=== PATIENT | female | born 1960 | race Caucasian/White ===

== ENCOUNTER 2016-10-08 13:10 | Emergency (ER) | payer BC ==
[2016-10-08] MEDS ORDERED: ACETAMINOPHEN 325 MG TABLET (FP) PO ONE (13:20)
[2016-10-08] MEDS ORDERED: ACETAMINOPHEN 325 MG TABLET (FP) ONE (13:22)
[2016-10-08 13:26] VITALS: BP 136/90; PULSE 84; TEMP 98.1; BMI 21.6
--- NOTE | 2016-10-08 13:44 | PDOC ---
History of Present Illness - General Chief Complaint: Injury Stated Complaint: FALL Time Seen by Provider: 10/08/16 13:18 History Source: Patient Exam Limitations: No Limitations - History of Present Illness Initial Comments: 10/08/16 13:38 This is a 56-year-old female with a history of asthma, prior history of concussion who presents emergency department with a complaint of pain in her elbow, buttocks, and feet status post fall. Patient states she was going down the steps in her home (with steps without carpet) when she fell backwards landing on her bottom and slid down 6 steps. In the process she injured her elbows. She denies any head trauma or loss of consciousness. Patient was assisted to standing but noted severe left elbow pain, pain on the bottoms of her feet, and pain in her buttocks. Pt denied preceding dizziness, chest pain, shortness of breath, palpitations. PMH: Asthma PSH: none Medications: Proventil when necessary A LL: Please see MAR Social: Denies drug, cigarette use. GENERAL/CONSTITUTIONAL: No: fever, chills, weakness, loss of appetite. HEAD, EYES, EARS, NOSE AND THROAT: No: change in vision, ear pain, discharge, sore throat, throat swelling. MUSCULOSKELETAL: Yes: bilateral foot pain, left buttock pain, bilateral elbow pain SKIN : Yes: abrasions both elbows No: lesions, pallor, rash or easy bruising. NEUROLOGIC: No: headache, vertigo, paresthesias, weakness GENERAL: The patient is in no acute distress. HEAD: Normal with no signs of trauma. NECK: Normal range of motion, supple, No midline tenderness EXTREMITIES: Left elbow: limited range of motion, tenderness of the olecranon Right elbow: (+) range of motion, abrasion over the olecranon, no bruising Left sacral tenderness to palpation MUSCULOSKELETAL: No midline spinal tenderness to palpation, SKIN: No lacerations, no bruising noted Past History - Past Medical History Allergies/Adverse Reactions: Allergies Allergy/AdvReac Type Severity Reaction Status Date / Time shellfish derived Allergy Severe Difficulty Verified 10/08/16 13:13 Breathing Penicillins Allergy Intermediate Verified 10/08/16 13:13 aspirin Allergy Verified 10/08/16 13:13 clindamycin Allergy Rash Verified 10/08/16 13:13 doxycycline Allergy Verified 10/08/16 13:13 latex Allergy Rash Verified 10/08/16 13:13 nickel Allergy Verified 10/08/16 13:15 oxycodone Allergy Verified 10/08/16 13:15 ASA Allergy Uncoded 10/08/16 13:13 Home Medications: Ambulatory Orders Arformoterol Tartrate [Brovana (Restricted To Pulmonology/Resp) -] 1 neb NEB BID 10/30/15 Atorvastatin Ca [Lipitor] 10 mg PO HS 10/08/16 Lidocaine 5% Patch [Lidoderm Patch -] 1 patch TP DAILY PRN #30 patch 10/08/16 Methocarbamol [Robaxin -] 500 mg PO TID PRN #21 tablet 10/08/16 Spironolactone 50 mg PO BID 10/08/16 Anemia: No Asthma: Yes Cancer: No Cardiac Disorders: Yes (MVP) CVA: No COPD: No CHF: No Dementia: No Diabetes: No GI Disorders: Yes (SPASTIC COLON, GERD) Disorders: No HTN: Yes Hypercholesterolemia: Yes Liver Disease: No Suicide Attempt (Hx): No Seizures: No Thyroid Disease: No Other medical history: MIGRAINE HEADACHES, CONCUSSION, OSTEOPENIA - Surgical History Abdominal Surgery: No Appendectomy: No Cardiac Surgery: No Cholecystectomy: No Lung Surgery: No Neurologic Surgery: No Orthopedic Surgery: No - Immunization History Immunization Up to Date: Yes - Psycho/Social/Smoking Cessation Hx Anxiety: No Suicidal Ideation: No Smoking Status: No Smoking History: Former smoker Have you smoked in the past 12 months: No Number of Cigarettes Smoked Daily: 0 If you are a former smoker, when did you quit?: 1989 Cigars Per Day: 0 Information on smoking cessation initiated: No Hx Alcohol Use: Yes Drug/Substance Use Hx: No Substance Use Type: None, Alcohol Hx Substance Use Treatment: No *Physical Exam - Vital Signs Last Vital Signs Temp Pulse Resp BP Pulse Ox 98.1 F 84 18 136/90 100 10/08/16 13:10 10/08/16 13:10 10/08/16 13:10 10/08/16 13:10 10/08/16 13:10 ED Treatment Course - RADIOLOGY Radiology Studies Ordered: Category Date Time Status CERVICAL SPINE CT W/O CONTR [CT] Stat CT Scan 10/08/16 13:19 Ordered ELBOW-LEFT [RAD] Stat Radiology 10/08/16 13:19 Ordered ELBOW-RIGHT [RAD] Stat Radiology 10/08/16 13:19 Ordered HIP & PELVIS-LEFT [RAD] Stat Radiology 10/08/16 13:19 Ordered - Medications Given in the ED: ED Medications Discontinued Medications Generic Name Dose Route Start Last Admin Trade Name Eamon PRN Reason Stop Dose Admin Acetaminophen 975 mg 10/08/16 13:20 10/08/16 13:20 Tylenol - PO 10/08/16 13:21 975 mg ONCE ONE Administration Medical Decision Making - Medical Decision Making 10/08/16 13:44 Will do: xrays of affected areas Pt daughter is concerned that there is something wrong with her neck (despite FROM at the neck and no midline tenderness to palpation) Will do CT Will plan to discharge to home Tylenol for pain 10/08/16 15:27 Xrays negative Will discharge to home Likely musculoskeletal pain I have asked pt to follow up with her Orthopedist Will attempt to obtain CD of images *DC/Admit/Observation/Transfer Diagnosis at time of Disposition: Fall (on) (from) other stairs and steps, initial encounter, Musculoskeletal pain - Discharge Dispostion Disposition: HOME Condition at time of disposition: Improved Admit: No - Prescriptions Prescriptions: Lidocaine 5% Patch [Lidoderm Patch -] 1 patch TP DAILY PRN #30 patch PRN Reason: Pain Methocarbamol [Robaxin -] 500 mg PO TID PRN #21 tablet PRN Reason: Pain - Patient Instructions Printed Discharge Instructions: DI for Musculoskeletal Pain - Post Discharge Activity Work/School Note: Back to Work
== END 2016-10-08 15:40 | disposition home or self-care (01) ==
LOC: FER 13:10
DX: M79.1 Myalgia (principal); W10.9XXA Fall (on) (from) unspecified stairs and steps, initial encounter; Y93.89 Activity, other specified; Y92.008 Other place in unspecified non-institutional (private) residence as the place of occurrence of the external cause; I34.1 Nonrheumatic mitral (valve) prolapse; E78.00 Pure hypercholesterolemia, unspecified; I10 Essential (primary) hypertension; J45.909 Unspecified asthma, uncomplicated; Z87.891 Personal history of nicotine dependence
CPT/HCPCS: 72125-TC; 73070-TC-LT; 73070-TC-RT; 73523-TC; 99283-25

== ENCOUNTER 2016-10-15 18:28 | Emergency (ER) | payer BC ==
--- NOTE | 2016-10-15 18:31 | PDOC ---
History of Present Illness - General History Source: Patient Exam Limitations: No Limitations - History of Present Illness Initial Comments: 10/15/16 18:43 The patient is a 56 year old female with a significant past medical history of ovarian cysts, presenting to the Emergency Department with lower, right lower quadrant pain. She reports that the pain began suddenly about 40 minutes ago, and rates the pain 10/10 in intensity. She describes the pain as sharp, at her lower right quadrant, and radiating slightly to her back. She states that standing still slightly alleviates the pain. She admits to nausea due to the pain, but denies vomiting. The patient denies dysuria, hematuria, or urinary frequency. Patient denies diarrhea, constipation, or hematochezia. Patient denies fever, cough, or chills. Patient states that her last menstrual period was 1.[address] scan on 08/30/17 shows stable right upper pole renal mass consistent with a proteinaceous cyst since 07/15/15. <Justyna Humphreys - Last Filed: 10/15/16 18:50> <Lokesh Juarez - Last Filed: 10/15/16 18:57> - General Chief Complaint: Pain, Acute Stated Complaint: RLQ PAIN Time Seen by Provider: 10/15/16 18:30 Past History <Justyna Humphreys - Last Filed: 10/15/16 18:50> - Past Medical History Anemia: No Asthma: Yes Cancer: No Cardiac Disorders: Yes (MVP) CVA: No COPD: No CHF: No Dementia: No Diabetes: No GI Disorders: Yes (SPASTIC COLON, GERD) Disorders: No HTN: Yes Hypercholesterolemia: Yes Liver Disease: No Suicide Attempt (Hx): No Seizures: No Thyroid Disease: No - Surgical History Abdominal Surgery: No Appendectomy: No Cardiac Surgery: No Cholecystectomy: No Lung Surgery: No Neurologic Surgery: No Orthopedic Surgery: No - Immunization History Immunization Up to Date: Yes - Psycho/Social/Smoking Cessation Hx Anxiety: No Suicidal Ideation: No Smoking Status: No Smoking History: Former smoker Have you smoked in the past 12 months: No Number of Cigarettes Smoked Daily: 0 If you are a former smoker, when did you quit?: 1989 Cigars Per Day: 0 Hx Alcohol Use: Yes Drug/Substance Use Hx: No Substance Use Type: None, Alcohol Hx Substance Use Treatment: No <Lokesh Juarez - Last Filed: 10/15/16 18:57> - Past Medical History Allergies/Adverse Reactions: Allergies Allergy/AdvReac Type Severity Reaction Status Date / Time shellfish derived Allergy Severe Difficulty Verified 10/15/16 18:30 Breathing Penicillins Allergy Intermediate Verified 10/15/16 18:30 aspirin Allergy Verified 10/15/16 18:30 clindamycin Allergy Rash Verified 10/15/16 18:30 doxycycline Allergy Verified 10/15/16 18:30 latex Allergy Rash Verified 10/15/16 18:30 nickel Allergy Verified 10/15/16 18:30 oxycodone Allergy Verified 10/15/16 18:30 ASA Allergy Uncoded 10/15/16 18:30 Home Medications: Ambulatory Orders Arformoterol Tartrate [Brovana (Restricted To Pulmonology/Resp) -] 1 neb NEB BID 10/30/15 Atorvastatin Ca [Lipitor] 10 mg PO HS 10/08/16 Lidocaine 5% Patch [Lidoderm Patch -] 1 patch TP DAILY PRN #30 patch 10/08/16 Methocarbamol [Robaxin -] 500 mg PO TID PRN #21 tablet 10/08/16 Spironolactone 50 mg PO BID 10/08/16 Review of Systems - Review of Systems Able to Perform ROS?: Yes Comments:: 10/15/16 18:44 CONSTITUTIONAL: Absent: fever, chills, diaphoresis, generalized weakness, malaise, loss of appetite HEENT: Absent: rhinorrhea, nasal congestion, throat pain, throat swelling, difficulty swallowing, mouth swelling, ear pain, eye pain, visual Changes CARDIOVASCULAR: Absent: chest pain, syncope, palpitations, irregular heart rate, lightheadedness , peripheral edema RESPIRATORY: Absent: cough, shortness of breath, dyspnea with exertion, orthopnea, wheezing, stridor, hemoptysis GASTROINTESTINAL: Present: + right lower quadrant pain Absent: abdominal distension, nausea, vomiting, diarrhea, constipation, melena, hematochezia GENITOURINARY: Absent: dysuria, frequency, urgency, hesitancy, hematuria, flank pain, genital pain MUSCULOSKELETAL: Absent: myalgia, arthralgia, joint swelling SKIN: Absent: rash, itching, pallor HEMATOLOGIC/IMMUNOLOGIC: Absent: easy bleeding, easy bruising, lymphadenopathy, frequent infections ENDOCRINE: Absent: unexplained weight gain, unexplained weight loss, heat intolerance, cold intolerance NEUROLOGIC: Absent: headache, focal weakness or paresthesias, dizziness, unsteady gait, seizure, mental status changes, bladder or bowel incontinence PSYCHIATRIC: Absent: anxiety, depression, suicidal or homicidal ideation, hallucinations. <Justyna Humphreys - Last Filed: 10/15/16 18:50> *Physical Exam - Physical Exam Comments: 10/15/16 18:45 GENERAL: Well developed, well nourished. Awake and alert. In no acute distress. HEENT: Normocephalic, atraumatic. PERRLA, EOMI. No conjunctival pallor. Sclera are non- icteric. Moist mucous membranes. Oropharynx is clear. NECK: Supple. Full ROM. No JVD. Carotid pulses 2+ and symmetric, without bruits. No thyromegaly. No lymphadenopathy. CARDIOVASCULAR: Regular rate and rhythm. No murmurs, rubs, or gallops. Distal pulses are 2+ and symmetric. PULMONARY: No evidence of respiratory distress. Lungs clear to auscultation bilaterally. No wheezing, rales or rhonchi. ABDOMINAL: Soft, non-distended. Exquisite tenderness to moderate palpation in RLQ. Positive Rovsings sign. Positive heel strike. Negative Obturator sign. Neg Psos sign. No organomegaly. Normoactive bowel sounds. MUSCULOSKELETAL Normal range of motion at all joints. No bony deformities or tenderness. No CVA tenderness. EXTREMITIES: No cyanosis. No clubbing. No edema. No calf tenderness. SKIN: Warm and dry. Normal capillary refill. No rashes. No jaundice. NEUROLOGICAL: Alert, awake, appropriate. Cranial nerves 2-12 intact. No deficits to light touch and temperature in face, upper extremities and lower extremities. No motor deficits in the in face, upper extremities and lower extremities. Normoreflexic in the upper and lower extremities. Normal speech. PSYCHIATRIC: Cooperative. Good eye contact. Appropriate mood and affect. <Justyna Humphreys - Last Filed: 10/15/16 18:50> Medical Decision Making - Medical Decision Making 10/15/16 18:39 The patient is well-appearing, but in distress secondary to pain On abdominal examination, she does not have rebound or guarding Her belly is soft She does, however, have exquisite tenderness to deep palpation in the right lower quadrant, a positive Rovsings sign and a positive heel strike Differential diagnosis is broad and includes: Ovarian torsion Ruptured ovarian cyst Ureterolithiasis Other causes Will place IV Will obtain labs Will obtain UA Will administer IV Tylenol (she refuses all other analgesics) Will obtain transvaginal ultrasound stat We have called the tech 10/15/16 18:57 Case discussed in detail with oncoming Emergency Physician including history, physical exam and ancillary studies. Oncoming Emergency Physician has assumed care for the patient and will complete the evaluation and treatment. <Lokesh Juarez - Last Filed: 10/15/16 18:57> *DC/Admit/Observation/Transfer - Attestations Scribe Attestion: 10/15/16 18:51 Documentation prepared by Justyna Humphreys, acting as bacteriologist medical for Lokesh Juarez MD. <Justyna Humphreys - Last Filed: 10/15/16 18:50> <Lokesh Juarez - Last Filed: 10/15/16 18:57> Diagnosis at time of Disposition: Abdominal pain - Discharge Dispostion Condition at time of disposition: Good - Referrals Referrals: Boby Weems MD [Primary Care Provider] -
[2016-10-15] MEDS ORDERED: SODIUM CHLORIDE 1,000 ML IV STA (18:38)
[2016-10-15] MEDS ORDERED: ACETAMINOPHEN 1000 MG/100 ML VIAL (NON FORMULARY) IVPB ONE (18:39)
[2016-10-15 19:07] LABS: BASOPHIL 0.8 % (0-2.0); EOSINOPHIL 1.9 % (0-4.5); MCH 29.7 pg (25.7-33.7); MCHC 33.4 g/dl (32.0-36.0); MEAN CELL VOLUME 88.8 fl (80-96); MEAN PLT VOLUME 7.2 fl (7.5-11.1); NEUTROPHILS 53.5 % (42.8-82.8); PLATELET COUNT 349 K/MM3 (134-434); RDW 12.4 % (11.6-15.6); WHITE BLOOD COUNT 6.6 K/mm3 (4.0-10.0)
[2016-10-15 19:08] VITALS: TEMP 98.4; BMI 21.5
[2016-10-15 19:21] LABS: ALK PHOS 74 U/L (32-92); ANION GAP 12 (8-16); BILIRUBIN,TOTAL 0.7 mg/dl (0.2-1.0); CO2 27 mmol/L (22-28); CREATININE 0.8 mg/dl (0.6-1.3); GLUCOSE,RANDOM 102 mg/dl (74-106); SGOT/AST 20 U/L (10-42); SGPT/ALT 17 U/L (10-40)
[2016-10-15 19:51] LABS: PH,URINE 5.5 (4.5-8); URINE APPEARANCE Clear; URINE BILIRUBIN Negative (NEGATIVE); URINE BLOOD Negative (NEGATIVE); URINE COLOR YELLOW; URINE GLUCOSE (UA) Negative (NEGATIVE); URINE KETONE 1+ (NEGATIVE); URINE LEUK ESTERASE Negative (NEGATIVE); URINE NITRITE Negative (NEGATIVE); URINE PROTEIN Negative (NEGATIVE); URINE UROBILINOGEN 0.2 E.U/dl (0.2-1.0)
[2016-10-15] MEDS ORDERED: HYOSCYAMINE SULFATE 0.125 MG *ODT PO ONE (20:22)
[2016-10-15] MEDS ORDERED: HYOSCYAMINE SULFATE 0.125 MG *ODT ONE (20:24)
--- NOTE | 2016-10-15 21:11 | PDOC ---
*Physical Exam - Vital Signs Last Vital Signs Temp Pulse Resp BP Pulse Ox 98.4 F 110 H 20 150/83 100 10/15/16 18:29 10/15/16 18:29 10/15/16 18:29 10/15/16 18:29 10/15/16 18:29 ED Treatment Course - LABORATORY CBC & Chemistry Diagram: 10/15/16 18:45 10/15/16 18:45 - ADDITIONAL ORDERS Additional order review: Laboratory Results 10/15/16 10/15/16 19:40 18:45 Sodium 138 Potassium 4.3 Chloride 99 Carbon Dioxide 27 Anion Gap 12 BUN 15 D Creatinine 0.8 Creat Clearance w eGFR > 60 Random Glucose 102 Calcium 10.0 Total Bilirubin 0.7 D AST 20 ALT 17 Alkaline Phosphatase 74 D Total Protein 8.0 Albumin 5.0 Lipase 33 Urine Color Yellow Urine Appearance Clear Urine pH 5.5 Ur Specific [place] 1.015 Urine Protein Negative Urine Glucose (UA) Negative Urine Ketones 1+ H Urine Blood Negative Urine Nitrite Negative Urine Bilirubin Negative Urine Urobilinogen 0.2 e.u/dl Ur Leukocyte Esterase Negative 10/15/16 18:45 RBC 4.80 MCV 88.8 MCHC 33.4 RDW 12.4 MPV 7.2 L Neutrophils % 53.5 Lymphocytes % 38.2 Monocytes % 5.6 Eosinophils % 1.9 Basophils % 0.8 - Medications Given in the ED: ED Medications Discontinued Medications Generic Name Dose Route Start Last Admin Trade Name Freq PRN Reason Stop Dose Admin Acetaminophen 1,000 mg 10/15/16 18:39 10/15/16 18:50 Ofirmev Injection - IVPB 10/15/16 18:40 1,000 mg ONCE ONE Administration Hyoscyamine Sulfate 0.125 mg 10/15/16 20:22 10/15/16 20:25 Levsin Odt - PO 10/15/16 20:23 0.125 mg ONCE ONE Administration Sodium Chloride 1,000 mls @ 1,000 mls/hr 10/15/16 18:38 10/15/16 18:45 Normal Saline - IV 10/15/16 19:37 1,000 mls/hr ASDIR STA Administration Progress Note - Progress Note Progress Note: Care of this patient was transferred to dc from Dr. Álvarez at 1900 hrs. Patient is a 56-year-old female who came in with acute onset of severe 10 out of 10 right lower quadrant abdominal pain. Patient has a workup pending for the pain. Patient also has a ultrasound ordered. 21:00 Patient's workup at this time is negative with a normal white count and no left shift and normal chemistries. Also the urinalysis is normal. Patient was given hyoscyamine with some improvement of her symptoms but her pain is still described as a 5 out of 10. We'll do CT scan of abdomen to rule out kidney stone and acute appendicitis. EXAM: US PELVIC COMPLETE US TRANSVAGINAL REASON FOR EXAM: Pain COMPARISON: None FINDINGS: The anteverted uterus is normal in echotexture and without discrete fibroids or mass. The uterus measures 6.4 x 3.9 cm. The endometrial stripe is normal for age at 4.7 mm. There is no free fluid or suspicious adnexal mass. The left ovary is not visualized. Color flow detected in the right ovary. The right ovary measure 2.3 x 1.7 x 1.3 cm IMPRESSION: No free fluid or suspicious pelvic mass. Left ovary nonvisualized. Rest of the exam is unremarkable EXAM: COMPLETE RENAL ULTRASOUND: Grayscale imaging performed. REASON FOR EXAM: pain COMPARISON: None FINDINGS: Bilateral kidneys are normal in echotexture and size. The right kidney measures 9.2 x 4.4 x 5.1 cm and the left measures 9.2 x 4.3 x 3.7 cm. There is no hydronephrosis or nephrolithiasis. Simple cyst seen in the upper pole of the right kidney measures 3.7 x 3.8 x 3.4 cm . There is no solid mass. Visualized bladder is unremarkable. IMPRESSION: Right renal cyst. No hydronephrosis or renal mass. THIS DOCUMENT HAS BEEN ELECTRONICALLY SIGNED Akila Sierra D.O. 10/15/2016 21:23 EST Stephen Please call [facility] [phone] ([phone]) with questions. End of Report Content Parole Agent: (greg) Begin of Report Content Referring Physician: Blake Wayne Patient Name: Chantel Giordano THIS IS A PRELIMINARY REPORT FROM [facility] DATE OF SERVICE: 2016-10-15 21:56:06.0 IMAGES: [id number] EXAM: CT ABDOMEN AND PELVIS WITHOUT CONTRAST TECHNIQUE: Contiguous axial images acquired with reformat sagittal and coronal planes. REASON FOR EXAM: Abdominal pain right flank COMPARISON: None FINDINGS: Lower lung murphy are clear. There are no gallstones identified. Liver, pancreas , spleen and adrenal glands are grossly unremarkable given the limitation of this non contrast exam. No renal stones are seen or evidence of obstructive uropathy. Abdominal aorta without AAA. There is no retroperitoneal hemorrhage The appendix is normal and located midline at the level of L5. Moderate stool burden. Evaluation of the GI tract is limited without oral contrast. No evidence of bowel obstruction, ascites, abscess, free air or diverticulitis. Bladder and uterus grossly unremarkable. Lumbar spine and bony pelvis are intact small bulge at L3-4. IMPRESSION: No acute abdominal or pelvic findings on this non contrast exam. No renal stones or evidence of obstructive uropathy. Appendix is normal. THIS DOCUMENT HAS BEEN ELECTRONICALLY SIGNED Akila Sierra D.O. 10/15/2016 22:52 EST M.D. Please call [facility] [phone] ([phone]) with questions. End of Report Content Other Reports for Pasquale Golden ( ) Study Description Accession Number Report Date & Time Study Date & Time # of Reports TRANSVAGINAL ULTRASOUND US [id number] 10/15/2016 19:18:00 10/15/2016 19:18:11 Assessment and plan: This is a 56-year-old female who came in complaining of severe right lower quadrant pain pain was acute onset prior to coming in. Patient had a complete workup including ultrasound, CAT scan and labs all of which were normal. Patient was given an antispasmodic with improvement in her symptoms and discharged home. Patient given a prescription for an antispasmodic and will follow-up with her GI doctor. *DC/Admit/Observation/Transfer Diagnosis at time of Disposition: Abdominal pain - Discharge Dispostion Disposition: HOME Condition at time of disposition: Good Admit: No - Referrals Referrals: Boby Weems MD [Primary Care Provider] - - Patient Instructions Printed Discharge Instructions: DI for Abdominal Pain-Adult Additional Instructions: For the pain you can take hyoscyamine one oral dissolving tablet as often as 3 times a day if needed. Return to the emergency department immediately with ANY new, persistent or worsening symptoms. Continue any medications as previously prescribed by your physician. You should follow up with your primary doctor as soon as possible regarding today's emergency department visit. . Please make sure your doctor reviews the results of your emergency evaluation. Thank you for coming to the Emergency Department today for your care. It was a pleasure to see you today. Please note that your evaluation is INCOMPLETE until you follow-up with your doctor. - Post Discharge Activity
[2016-10-15 22:14] VITALS: BP 107/64; PULSE 64
== END 2016-10-15 23:10 | disposition home or self-care (01) ==
LOC: SUPCPDRO 18:28 → FER 18:28
PROC: 3E033NZ Introduction of Analgesics, Hypnotics, Sedatives into Peripheral Vein, Percutaneous Approach (ICD-10-PCS; principal; 2016-10-15)
PROC: 3E0337Z Introduction of Electrolytic and Water Balance Substance into Peripheral Vein, Percutaneous Approach (ICD-10-PCS; 2016-10-15)
DX: R10.31 Right lower quadrant pain (principal)
CPT/HCPCS: 36415; 74176-TC; 76830-TC; 80053; 81003; 83690; 85025; 99283-25

== ENCOUNTER 2017-04-28 16:53 | Emergency (ER) | payer BC ==
[2017-04-28 17:51] VITALS: BP 114/66; PULSE 99; TEMP 98.4; BMI 22.8
--- NOTE | 2017-04-28 18:01 | PDOC ---
History of Present Illness - General Chief Complaint: Pain Stated Complaint: LLL PAIN Time Seen by Provider: 04/28/17 17:55 - History of Present Illness Initial Comments: 04/28/17 18:01 Patient is a 56 year old female with history of MVP, HLD and TIA presenting with an acute left leg pain for one hour. Pain started while patient was taking a shower and is a constant deep sharp throbbing pain to the left medial proximal calf initially 10/10 and currnetly 7/10 able to bear weight , , in patient's and left medial knee. The pain in the calf is worse than in the knee. Patient states the pain is both deep and superficial 04/28/17 18:16 04/28/17 18:22 Past History - Past Medical History Allergies/Adverse Reactions: Allergies Allergy/AdvReac Type Severity Reaction Status Date / Time shellfish derived Allergy Severe Difficulty Verified 04/28/17 17:45 Breathing Penicillins Allergy Intermediate Verified 04/28/17 17:45 aspirin Allergy Verified 04/28/17 17:45 clindamycin Allergy Rash Verified 04/28/17 17:45 doxycycline Allergy Verified 04/28/17 17:45 latex Allergy Rash Verified 04/28/17 17:45 nickel Allergy Verified 04/28/17 17:45 oxycodone Allergy Verified 04/28/17 17:45 Home Medications: Ambulatory Orders Atorvastatin Ca [Lipitor] 10 mg PO HS 10/08/16 Spironolactone 50 mg PO BID 10/08/16 Anemia: No Asthma: Yes Cancer: No Cardiac Disorders: Yes (MVP) CVA: No COPD: No CHF: No Dementia: No Diabetes: No GI Disorders: Yes (SPASTIC COLON, GERD) Disorders: No HTN: Yes Hypercholesterolemia: Yes Liver Disease: No Suicide Attempt (Hx): No Seizures: No Thyroid Disease: No - Surgical History Abdominal Surgery: No Appendectomy: No Cardiac Surgery: No Cholecystectomy: No Lung Surgery: No Neurologic Surgery: No Orthopedic Surgery: No - Immunization History Immunization Up to Date: Yes - Psycho/Social/Smoking Cessation Hx Anxiety: No Suicidal Ideation: No Smoking Status: No Smoking History: Never smoked Have you smoked in the past 12 months: No Number of Cigarettes Smoked Daily: 0 If you are a former smoker, when did you quit?: 1989 Cigars Per Day: 0 Information on smoking cessation initiated: No Hx Alcohol Use: No Drug/Substance Use Hx: No Substance Use Type: None, Alcohol Hx Substance Use Treatment: No *Physical Exam - Vital Signs Last Vital Signs Temp Pulse Resp BP Pulse Ox 98.4 F 99 H 20 114/66 100 04/28/17 16:55 04/28/17 16:55 04/28/17 16:55 04/28/17 16:55 04/28/17 16:55 Medical Decision Making - Medical Decision Making 04/28/17 18:01 56 year old female with acute left leg pain Ddx includes but is not limited to DVT, Cellulitis, Trauma Plan Duplex US of leg 04/28/17 19:07 Patient care signed out to Dr. Radha Colunga
[2017-04-28] MEDS ORDERED: ACETAMINOPHEN 325 MG TABLET (FP) PO ONE (19:01)
--- NOTE | 2017-04-28 19:01 | PDOC ---
Attending Attestation - Resident Resident Name: Juno Mercer - ED Attending Attestation I have performed the following: I have examined & evaluated the patient, The case was reviewed & discussed with the resident, I agree w/resident's findings & plan, Exceptions are as noted - HPI HPI: 04/30/17 08:12 56yo F p/w atraumatic L knee pain. Pt reports she had a busy day at home, cleaning and vacuuming, but does not recall any injuries to her knee. Pt was concerned about a blood clot and came to the emergency department. Denies recent travel or immobility, denies exogenous hormones. - Physicial Exam PE: 04/28/17 18:57 GENERAL: Awake, alert, and fully oriented, in no acute distress HEAD: No signs of trauma EYES: PERRLA, EOMI, sclera anicteric, conjunctiva clear ENT: Auricles normal inspection, hearing grossly normal, nares patent, oropharynx clear without exudates. Moist mucosa NECK: Normal ROM, supple, no lymphadenopathy, JVD, or masses LUNGS: Breath sounds equal, clear to auscultation bilaterally. No wheezes, and no crackles HEART: Regular rate and rhythm, normal S1 and S2, no murmurs, rubs or gallops ABDOMEN: Soft, nontender, normoactive bowel sounds. No guarding, no rebound. No masses EXTREMITIES: Normal range of motion, no edema. No clubbing or cyanosis. No cords, erythema, or tenderness. L medial knee and medial calf with ttp with no rashes, hematoma, color change, deformities, or edema. +L calf ttp NEUROLOGICAL: Normal speech, cranial nerves intact, negative pronator drift, 5/ 5 strength in all 4 extremities, normal sensation to light touch in all 4 extremities, normal cerebellar exam, normal gait, normal reflexes and tone SKIN: Warm, Dry, normal turgor, no rashes or lesions noted. - Medical Decision Making 04/30/17 08:23 56yo F p/w atraumatic L knee pain. Pt reports pain in her R knee and may be overusing L knee. +L proximal medial calf ttp and L medial knee ttp. Concern for DVT vs muscle strain. -LLE US -L knee/tib+fib XR -tylenol -reassess
[2017-04-28] MEDS ORDERED: ACETAMINOPHEN 325 MG TABLET (FP) ONE (19:13)
--- NOTE | 2017-04-28 22:16 | PDOC ---
*Physical Exam - Vital Signs Last Vital Signs Temp Pulse Resp BP Pulse Ox 98.4 F 99 H 20 114/66 100 04/28/17 16:55 04/28/17 16:55 04/28/17 16:55 04/28/17 16:55 04/28/17 16:55 ED Treatment Course - RADIOLOGY Radiology Studies Ordered: Category Date Time Status KNEE 2 POS-LEFT [RAD] Stat Radiology 04/28/17 19:50 Completed - Medications Given in the ED: ED Medications Discontinued Medications Generic Name Dose Route Start Last Admin Trade Name Eamon PRN Reason Stop Dose Admin Acetaminophen 650 mg 04/28/17 19:01 04/28/17 19:14 Tylenol - PO 04/28/17 19:02 650 mg ONCE ONE Administration Progress Note - Progress Note Progress Note: Care of this patient received from . Right lower extremity Doppler duplex ultrasound negative for DVT Left knee/left tib-fib x-rays performed and interpreted by Dr. Montoya: No evidence of acute fracture or dislocation. No evidence of other acute pathology. Results discussed with the patient and her . Although some of the symptoms(distal anterior thigh pain/medial knee pain) can be explained with diagnosis of knee strain/sprain, she also has hyperesthesia/pain on light touch in the same medial area of her knee. Patient has had zoster rash the for but does not feel that these symptoms are similar to those she experienced when she had zoster. Neil wrap was slightly placed on the knee area. Patient will follow-up with her orthopedist on 05/01/17. The only analgesic the patient can safely take is Tylenol, which she will take as needed for the pain *DC/Admit/Observation/Transfer Diagnosis at time of Disposition: Strain of left knee and leg Qualifiers: Encounter type: initial encounter Qualified Code(s): S86.912A - Strain of unspecified muscle(s) and tendon(s) at lower leg level, left leg, initial encounter - Discharge Dispostion Disposition: HOME Condition at time of disposition: Stable - Patient Instructions Printed Discharge Instructions: DI for Knee Pain Additional Instructions: Elevate left leg is much as possible Avoid strenuous activity involving lower extremities for the next 5 days Tylenol as needed for pain Neil wrap to the left knee area as needed during the day Follow-up with your orthopedist within the next 5 days
== END 2017-04-28 22:23 | disposition home or self-care (01) ==
LOC: FER 16:53
DX: S86.912A Strain of unspecified muscle(s) and tendon(s) at lower leg level, left leg, initial encounter (principal); X58.XXXA Exposure to other specified factors, initial encounter; Y93.89 Activity, other specified; Y92.9 Unspecified place or not applicable; E78.5 Hyperlipidemia, unspecified; I34.1 Nonrheumatic mitral (valve) prolapse; Z86.73 Personal history of transient ischemic attack (TIA), and cerebral infarction without residual deficits
CPT/HCPCS: 73560-TC-LT; 73590-TC-LT; 93971-TC; 99282-25

== ENCOUNTER 2017-06-15 19:15 | Emergency (ER) | payer BC ==
[2017-06-15 19:27] VITALS: BP 135/69; TEMP 98.2; BMI 23.1
--- NOTE | 2017-06-15 19:33 | PDOC ---
History of Present Illness - General History Source: Patient Exam Limitations: No Limitations - History of Present Illness Initial Comments: 06/15/17 20:01 57 y/o F with a PMHx of asthma, GERD, HTN, HLD, migraines, MVP presents to the ED with lightheadedness and nausea today. Patient also reports chest pressure radiating into her left arm, and shakiness. She was on Nortriptyline for migraines for 2 weeks and stopped it two days ago. She called her neurologist before arriving because she believed she was going through withdrawal from Nortriptyline. Her neurologist told her it is unlikely because of the small dosage and time she was taking it. On arrival, the patient was vomiting a small amount of liquid. She denies chest pain, abdominal pain, diarrhea, constipation. PAST MEDICAL HISTORY: asthma, GERD, HTN, HLD, migraines, MVP PAST SURGICAL HISTORY: no significant history FAMILY HISTORY: no pertinent history SOCIAL HISTORY: Pt lives with family and is employed. MEDICATIONS: reviewed ALLERGIES: As per nursing notes Review of Systems: General: (+) shakiness. No fevers or chills, no weakness, no weight loss HEENT: No change in vision. No sore throat,. No ear pain CardioVascular: (+) chest pressure radiating into left arm. No chest pain or shortness of breath Respiratory: No cough, or wheezing. Gastrointestinal: (+) nausea, vomiting. No diarrhea or constipation, No rectal bleeding Genitourinary: No dysuria, hematuria, or frequency Musculoskeletal: No joint or muscle pain or swelling Neurologic: (+) lightheadedness. No headache, or loss of consciousness Psychiatric: No depression Skin: No rashes or easy bruising Endocrine: No increased thirst or abnormal weight change Allergic: No skin or latex allergy All other systems reviewed and normal Physical Exam: General: Well-nourished well-developed individual, hyperventilating. HEENT: Throat: Normal, tonsils normal, no erythema or exudate Neck: Supple, no meningeal signs, no lymphadenopathy Eyes: Pupils equal reactive and round, extraocular motion intact Chest: Nontender to palpation Cardiac: S1-S2 normal, slightly tachycardic rate and regular rhythm, no murmurs rubs or gallops Respiratory: Lungs clear to auscultation bilateral Abdomen: Soft, nondistended, normal bowel sounds, nontender to palpation diffusely Extremities: Warm, dry, no cyanosis, clubbing, or edema Skin: No rashes Neuro: Alert and oriented x3, nonfocal exam, grossly intact, normal gait Psych: Anxious appearing <Sally Bragg A - Last Filed: 06/15/17 21:10> - General History Source: Patient Exam Limitations: No Limitations - History of Present Illness Initial Comments: 06/15/17 23:26 A portion of this note was documented by scribe services under my direction. I have reviewed the details of the note, within reason, and agree with the documentation. The case summary and management plan written by me. Assessment and plan: This is a 57-year-old female with symptoms of anxiety, vertigo and migraine headaches. Patient was started on nortriptyline for her migraine headaches and abruptly stopped 2 days ago and now comes in with anxiety , vertigo and nausea and vomiting. Is unclear as to whether or not patient symptoms are secondary to her vertigo or secondary to withdrawal from the nortriptyline. Patient was given IV fluids, antiemetics and offered meclizine but did not want the meclizine. Patient felt better after IV hydration and antiemetics. Patient glucose is noted to be 190 however there was no anion gap and the rest of her blood work was unremarkable. Patient has a history of prediabetes in the past and will follow-up with her primary care doctor or an drug director community organization this week. Patient discharged home with her <Blake Wayne I - Last Filed: 06/15/17 23:28> - General Stated Complaint: SOB, SHAKEY, TREMORS Time Seen by Provider: 06/15/17 19:32 Past History <Sally Bragg A - Last Filed: 06/15/17 21:10> - Past Medical History Anemia: No Asthma: Yes Cancer: No Cardiac Disorders: Yes (MVP) CVA: No COPD: No CHF: No Dementia: No Diabetes: No GI Disorders: Yes (SPASTIC COLON, GERD) Disorders: No HTN: Yes Hypercholesterolemia: Yes Liver Disease: No Seizures: No Thyroid Disease: No Other medical history: MIGRAINE HEADACHES - Surgical History Abdominal Surgery: No Appendectomy: No Cardiac Surgery: No Cholecystectomy: No Lung Surgery: No Neurologic Surgery: No Orthopedic Surgery: No - Immunization History Immunization Up to Date: Yes - Suicide/Smoking/Psychosocial Hx Smoking Status: No Smoking History: Unknown if ever smoked Have you smoked in the past 12 months: No Number of Cigarettes Smoked Daily: 0 If you are a former smoker, when did you quit?: 1988 Cigars Per Day: 0 Hx Alcohol Use: No Drug/Substance Use Hx: No Substance Use Type: None, Alcohol Hx Substance Use Treatment: No <Blake Wayne I - Last Filed: 06/15/17 23:28> - Past Medical History Allergies/Adverse Reactions: Allergies Allergy/AdvReac Type Severity Reaction Status Date / Time shellfish derived Allergy Severe Difficulty Verified 06/15/17 19:21 Breathing Penicillins Allergy Intermediate Verified 06/15/17 19:21 aspirin Allergy Verified 06/15/17 19:21 avocado Allergy Verified 06/15/17 19:21 clindamycin Allergy Rash Verified 06/15/17 19:21 codeine Allergy Verified 06/15/17 19:21 doxycycline Allergy Verified 04/28/17 17:45 Fish Containing Products Allergy Verified 06/15/17 19:21 latex Allergy Rash Verified 06/15/17 19:21 nickel Allergy Verified 06/15/17 19:21 oxycodone Allergy Verified 06/15/17 19:21 Home Medications: Ambulatory Orders Atorvastatin Ca [Lipitor] 10 mg PO HS 10/08/16 Spironolactone 50 mg PO BID 10/08/16 Loratadine [Claritin] 10 mg PO ASDIR 06/15/17 Nortriptyline HCl [Pamelor -] 25 mg PO DAILY 06/15/17 Ondansetron [Zofran *Odt*] 8 mg SL TID #15 od.tablet 06/15/17 Rizatriptan Benzoate [Maxalt] mg PO ASDIR 06/15/17 Valacyclovir HCl [Valtrex -] mg PO ASDIR 06/15/17 Zolpidem Tartrate [Ambien] 10 mg PO ASDIR 06/15/17 *Physical Exam - Vital Signs Last Vital Signs Temp Pulse Resp BP Pulse Ox 98.2 F 98 H 20 135/69 100 06/15/17 19:15 06/15/17 19:15 06/15/17 19:15 06/15/17 19:15 06/15/17 19:15 <Sally Bragg - Last Filed: 06/15/17 21:10> - Vital Signs Last Vital Signs Temp Pulse Resp BP Pulse Ox 98.2 F 98 H 20 135/69 100 06/15/17 19:15 06/15/17 19:15 06/15/17 19:15 06/15/17 19:15 06/15/17 19:15 <Blake Wayne I - Last Filed: 06/15/17 23:28> Heart Score/ECG Review #1 06/15/17 21:10 NSR with sinus arrythmia at 80 bpm. Normal ECG. <Sally Bragg - Last Filed: 06/15/17 21:10> ED Treatment Course - LABORATORY CBC & Chemistry Diagram: 06/15/17 20:15 06/15/17 20:15 <Sally Bragg - Last Filed: 06/15/17 21:10> - LABORATORY CBC & Chemistry Diagram: 06/15/17 20:15 06/15/17 20:15 <Blake Wayne I - Last Filed: 06/15/17 23:28> *DC/Admit/Observation/Transfer - Attestations Scribe Attestion: 06/15/17 20:01 Documentation prepared by Sally Bragg, acting as medical research scientist for Blake Wayne MD. <Sally Bragg - Last Filed: 06/15/17 21:10> <Blake Wayne I - Last Filed: 06/15/17 23:28> Diagnosis at time of Disposition: Vertigo, Anxiety Medication withdrawal Qualifiers: Substance type: other psychoactive substance Qualified Code(s): F19.939 - Other psychoactive substance use, unspecified with withdrawal, unspecified - Discharge Dispostion Disposition: HOME Condition at time of disposition: Stable - Prescriptions Prescriptions: Ondansetron [Zofran *Odt*] 8 mg SL TID #15 od.tablet - Patient Instructions Additional Instructions: For the vertigo U can take Dramamine or Bonine as directed on the over-the- counter box. For nausea take and Zofran 1 tablet as often as 3 times a day dissolve it under your tongue. Try to stay well-hydrated. Your blood sugar was elevated it is important you follow it up with your education rep or primary care doctor as discussed Return to the emergency department immediately with ANY new, persistent or worsening symptoms. Continue any medications as previously prescribed by your physician. You should follow up with your primary doctor as soon as possible regarding today's emergency department visit. . Please make sure your doctor reviews the results of your emergency evaluation. Thank you for coming to the Emergency Department today for your care. It was a pleasure to see you today. Please note that your evaluation is INCOMPLETE until you follow-up with your doctor.
[2017-06-15] MEDS ORDERED: SODIUM CHLORIDE 1,000 ML IV ONE (19:51)
[2017-06-15] MEDS ORDERED: ONDANSETRON 4 MG/2 ML VIAL IVPB ONE (19:51)
[2017-06-15] MEDS ORDERED: diazePAM CARPU-JECT 10 MG/2 ML DISP.SYRIN IVPUSH ONE (19:52)
[2017-06-15] MEDS ORDERED: diazePAM CARPU-JECT 10 MG/2 ML DISP.SYRIN ONE (20:16)
[2017-06-15] MEDS ORDERED: ONDANSETRON 4 MG/2 ML VIAL ONE (20:17)
[2017-06-15 20:23] LABS: BASOPHIL 0.4 % (0-2.0)
[2017-06-15 20:26] LABS: EOSINOPHIL 2.5 % (0-4.5); MCH 30.9 pg (25.7-33.7); MCHC 34.2 g/dl (32.0-36.0); MEAN CELL VOLUME 90.4 fl (80-96); MEAN PLT VOLUME 7.6 fl (7.5-11.1); NEUTROPHILS 59.3 % (42.8-82.8); PLATELET COUNT 325 K/MM3 (134-434); RDW 11.7 % (11.6-15.6); WHITE BLOOD COUNT 6.2 K/mm3 (4.0-10.8)
[2017-06-15 20:27] VITALS: PULSE 92
[2017-06-15 20:45] LABS: CPK 66 IU/L (26-192)
[2017-06-15 20:51] LABS: ALBUMIN 4.5 g/dl (3.5-5.0); ALK PHOS 66 U/L (32-92); ANION GAP 9 (8-16); BILIRUBIN,TOTAL 0.5 mg/dl (0.2-1.0); CALCIUM 9.6 mg/dl (8.4-10.2); CO2 23 mmol/L (22-28); CREATININE 0.7 mg/dl (0.6-1.3); GLUCOSE,RANDOM 190 mg/dl (74-106); SGOT/AST 26 U/L (10-42); SGPT/ALT 18 U/L (10-40); TOT PROT 7.2 g/dl (6.4-8.3)
[2017-06-15 20:57] LABS: TROPONIN I (DFP) < 0.03 ng/ml (0.03-0.50)
[2017-06-15] MEDS ORDERED: ONDANSETRON 8 MG TABLET (FP) PO ONE (21:40)
--- NOTE | 2017-06-16 18:02 | EKG ---
Test Reason : Blood Pressure : / mmHG Vent. Rate : 080 BPM Atrial Rate : 080 BPM P-R Int : 170 ms QRS Dur : 062 ms QT Int : 368 ms P-R-T Axes : 082 076 059 degrees QTc Int : 424 ms NORMAL SINUS RHYTHM WITH SINUS ARRHYTHMIA WHEN COMPARED WITH ECG OF 15-OCT-2013 08:27, NO SIGNIFICANT CHANGE WAS FOUND Confirmed by MD HOLLINGSWORTH MARJORY ([id number]) on 06/16/2017 6:02:09 PM Referred By: DR JOHNSON Confirmed By:MILAGROS HOLLINGSWORTH MD
== END 2017-06-15 22:06 | disposition home or self-care (01) ==
LOC: FER 19:15
PROC: 3E033NZ Introduction of Analgesics, Hypnotics, Sedatives into Peripheral Vein, Percutaneous Approach (ICD-10-PCS; principal; 2017-06-15)
PROC: 3E033GC Introduction of Other Therapeutic Substance into Peripheral Vein, Percutaneous Approach (ICD-10-PCS; 2017-06-15)
PROC: 3E0337Z Introduction of Electrolytic and Water Balance Substance into Peripheral Vein, Percutaneous Approach (ICD-10-PCS; 2017-06-15)
DX: F19.939 Other psychoactive substance use, unspecified with withdrawal, unspecified (principal); R42 Dizziness and giddiness; F41.9 Anxiety disorder, unspecified; Z87.891 Personal history of nicotine dependence; I10 Essential (primary) hypertension; E78.5 Hyperlipidemia, unspecified; I34.1 Nonrheumatic mitral (valve) prolapse; K21.9 Gastro-esophageal reflux disease without esophagitis
CPT/HCPCS: 36415; 80053; 82550; 84484; 85025; 93005; 99285-25

== ENCOUNTER 2017-12-29 15:21 | Observation (INO) | payer BC ==
--- NOTE | 2017-12-29 15:26 | PDOC ---
Rapid Medical Evaluation Time Seen by Provider: 12/29/17 15:22 Medical Evaluation: Allergies Allergy/AdvReac Type Severity Reaction Status Date / Time shellfish derived Allergy Severe Difficulty Verified 12/29/17 15:22 Breathing Penicillins Allergy Intermediate Verified 12/29/17 15:22 aspirin Allergy Verified 12/29/17 15:22 avocado Allergy Verified 12/29/17 15:22 clindamycin Allergy Rash Verified 12/29/17 15:22 codeine Allergy Verified 12/29/17 15:22 doxycycline Allergy Verified 12/29/17 15:22 Fish Containing Products Allergy Verified 12/29/17 15:22 latex Allergy Rash Verified 12/29/17 15:22 nickel Allergy Verified 12/29/17 15:22 oxycodone Allergy Verified 12/29/17 15:22 12/29/17 15:22 I have performed a brief in-person evaluation of this patient. The patient presents with a chief complaint of: felt tingling down right side of face starting around 230, "i feel like i'm walking to the right side", "i just dont' feel right", denies dizziness/chest pain/sob/loc, reports being worked up by rheum and allergies, saw Dr. Weems today Pertinent physical exam findings: no facial droop, slurred speech, or weakness I have ordered the following: labs, ekg The patient will proceed to the ED for further evaluation. Discharge Disposition - Diagnosis Tingling of face - Referrals - Patient Instructions - Post Discharge Activity
[2017-12-29] MEDS ORDERED: SODIUM CHLORIDE 1,000 ML IV SCH (15:45)
[2017-12-29 16:02] LABS: BASO % 0.3 % (0-2.0); EOS % 1.3 % (0-4.5); HEMATOCRIT 42.4 % (32.4-45.2); HEMOGLOBIN 14.6 GM/dL (10.7-15.3); LYMPH % 33.1 % (8-40); MCH 31.1 pg (25.7-33.7); MCHC 34.5 g/dl (32.0-36.0); MEAN CELL VOLUME 90.1 fl (80-96); MEAN PLT VOLUME 6.9 fl (7.5-11.1); MONO % 7.7 % (3.8-10.2); NEUT % 57.6 % (42.8-82.8); PLATELET COUNT 308 K/MM3 (134-434); RBC 4.71 M/mm3 (3.60-5.2); RDW 13.1 % (11.6-15.6); WHITE BLOOD COUNT 7.7 K/mm3 (4.0-10.0)
[2017-12-29 16:17] LABS: INR 0.99 (0.82-1.09); PROTHROMBIN TIME (PATIENT) 11.2 SEC (9.7-13.0)
[2017-12-29 16:28] LABS: CHOLESTEROL 205 mg/dL (50-200); HDL CHOLESTEROL 83 mg/dL (40-60); LDL CHOLESTEROL (ONLY SJRH) 114 mg/dL (5-100)
--- NOTE | 2017-12-29 16:29 | PDOC ---
History of Present Illness - General History Source: Patient, Spouse Exam Limitations: No Limitations - History of Present Illness Initial Comments: 12/29/17 16:35 The patient is a 57 year old female, with a significant past medical history of hyperlipidemia and migraines, who presents to the emergency department with right sided facial numbness at approximately 14:30 today. The patient report she was shopping when suddenly she began to feel right sided facial numbness. Patient reports she was in her usual state of health earlier today, but while shopping she began to experience numbness and tingling on the right side of her face and on her tongue. She denies any slurred speech, headache, dizziness, lightheadedness, changes in vision, upper or lower extremity numbness/tingling/ weakness. Patient reports a similar episode several weeks ago, which resolved on their own. Patient reports feeling tired, but denies chest pain, shortness of breath, diaphoresis, or palpitations. She denies any recent illness, fever, chills, cough, dizziness, nausea, or vomiting. Allergies: As per nursing notes Social History: Non smoker. No ETOH or recreational drug use. Neurologist: Dr. Abreu <Mirella Calix - Last Filed: 12/29/17 16:43> - General History Source: Patient, Spouse Exam Limitations: No Limitations <Jeffery Balderas - Last Filed: 12/30/17 09:20> - General Chief Complaint: Head/Neck problem Stated Complaint: STROKE Time Seen by Provider: 12/29/17 15:22 Past History <Mirella Calix - Last Filed: 12/29/17 16:43> - Past Medical History Anemia: No Asthma: Yes Cancer: No Cardiac Disorders: Yes (MVP) CVA: No COPD: No CHF: No DVT: No Dementia: No Diabetes: No GI Disorders: Yes (SPASTIC COLON, GERD) Disorders: No HTN: Yes Hypercholesterolemia: Yes Liver Disease: No Seizures: No Thyroid Disease: No Other medical history: migraines, op, - Surgical History Abdominal Surgery: No Appendectomy: No Cardiac Surgery: No Cholecystectomy: No Lung Surgery: No Neurologic Surgery: No Orthopedic Surgery: No - Immunization History Immunization Up to Date: Yes - Suicide/Smoking/Psychosocial Hx Smoking Status: No Smoking History: Unknown if ever smoked Have you smoked in the past 12 months: No Number of Cigarettes Smoked Daily: 0 If you are a former smoker, when did you quit?: 1989 Cigars Per Day: 0 Information on smoking cessation initiated: No Hx Alcohol Use: No Drug/Substance Use Hx: No Substance Use Type: None, Alcohol Hx Substance Use Treatment: No <Jeffery Balderas - Last Filed: 12/30/17 09:20> - Past Medical History Allergies/Adverse Reactions: Allergies Allergy/AdvReac Type Severity Reaction Status Date / Time shellfish derived Allergy Severe Difficulty Verified 12/29/17 15:22 Breathing Penicillins Allergy Intermediate Verified 12/29/17 15:22 aspirin Allergy Verified 12/29/17 15:22 avocado Allergy Verified 12/29/17 15:22 clindamycin Allergy Rash Verified 12/29/17 15:22 codeine Allergy Verified 12/29/17 15:22 doxycycline Allergy Verified 12/29/17 15:22 Fish Containing Products Allergy Verified 12/29/17 15:22 latex Allergy Rash Verified 12/29/17 15:22 nickel Allergy Verified 12/29/17 15:22 oxycodone Allergy Verified 12/29/17 15:22 Home Medications: Ambulatory Orders Atorvastatin Ca [Lipitor] 20 mg PO HS 10/08/16 Spironolactone 50 mg PO BID 10/08/16 Loratadine [Claritin] 10 mg PO ASDIR 06/15/17 Desipramine HCl [Norpramin -] 25 mg PO DAILY 12/29/17 Doxycycline Monohydrate [Oracea] 40 mg PO ASDIR 12/29/17 Montelukast Sodium [Singulair] 10 mg PO DAILY 12/29/17 Review of Systems - Review of Systems Able to Perform ROS?: Yes Comments:: 12/29/17 16:37 GENERAL/CONSTITUTIONAL: No fever or chills. No weakness. HEAD, EYES, EARS, NOSE AND THROAT: +Right sided tongue numbness/tingling. No change in vision. No ear pain or discharge. No sore throat. CARDIOVASCULAR: No chest pain or shortness of breath. RESPIRATORY: No cough, wheezing, or hemoptysis. GASTROINTESTINAL: No nausea, vomiting, diarrhea or constipation. GENITOURINARY: No dysuria, frequency, or change in urination. MUSCULOSKELETAL: No joint or muscle swelling or pain. No neck or back pain. SKIN: No rash NEUROLOGIC: +Right sided facial numbness. No headache, vertigo, loss of consciousness, or change in strength/sensation. ENDOCRINE: No increased thirst. No abnormal weight change. HEMATOLOGIC/LYMPHATIC: No anemia, easy bleeding, or history of blood clots. ALLERGIC/IMMUNOLOGIC: No hives or skin allergy. <Mirella Calix - Last Filed: 12/29/17 16:43> *Physical Exam - Vital Signs Last Vital Signs Temp Pulse Resp BP Pulse Ox 98.0 F 99 H 18 163/104 100 12/29/17 15:23 12/29/17 15:23 12/29/17 15:23 12/29/17 15:23 12/29/17 15:23 <Mirella Calix - Last Filed: 12/29/17 16:43> - Vital Signs Last Vital Signs Temp Pulse Resp BP Pulse Ox 98.0 F 99 H 18 163/104 100 12/29/17 15:23 12/29/17 15:23 12/29/17 15:23 12/29/17 15:23 12/29/17 15:23 - Physical Exam Comments: 12/29/17 16:24 GENERAL: Awake, alert, and fully oriented, in no acute distress. HEAD: No signs of trauma EYES: PERRLA, EOMI, sclera anicteric, conjunctiva clear ENT: Auricles normal inspection, hearing grossly normal, nares patent NECK: Normal ROM, supple LUNGS: Breath sounds equal, clear to auscultation bilaterally. No wheezes, and no crackles HEART: Regular rate and rhythm, normal S1 and S2, no murmurs, rubs or gallops ABDOMEN: Soft, nontender No guarding, no rebound. No masses EXTREMITIES: Normal range of motion, no edema. No clubbing or cyanosis. No cords, erythema, or tenderness SKIN: Warm, Dry, normal turgor, no rashes or lesions noted. CN II-XII intact except decreased sensation over R side of face. 5/5 strength upper and lower extremities. Speech normal, gait normal. No pronator drift. No dysmetria. <Jeffery Balderas - Last Filed: 12/30/17 09:20> NIH Stroke Scale - Last Known Well Date/Time & Onset Date Last Known Well: 12/29/17 Time Last Known Well: 14:30 - Initial Evaluation Level of consciousness: Alert Ask patient the month and their age: Answers both correctly Ask patient to open & close eyes; make fist and let go: Obeys both correctly Best gaze (horizontal eye movement): Normal Visual field testing: No visual field loss Facial paresis (Show teeth/raise eyebrows/close eyes tight): Normal symmetrical movement Motor Function: Left Arm: Normal Motor Function: Right Arm: Normal (extends arm 90 (or 45) degrees for 10 seconds without drift Motor Function: Left Leg: Normal (extends leg 30 degrees for 5 seconds without drift) Motor Function: Right Leg: Normal (extends leg 30 degrees for 5 seconds without drift) Limb Ataxia: No ataxia Sensory(Use pinprick test arms,legs,trunk,face/side to side): Mild to moderate decrease in sensation Best language (Describe picture, name items, read sentences): No Aphasia Dysarthria (read several words): Normal articulation Extinction and Inattention: No abnormality - Total Score NIH Stroke Scale Score: 1 <Jeffery Balderas - Last Filed: 12/30/17 09:20> tPA Exclusion Checklist 0-3hr - Time Elapsed Date last known well: 12/29/17 Time last known well: 14:30 Elaspsed time: Day(s) and 18 Hour(s) and 49 Minutes - Thrombolytic Therapy Candidate Is the patient eligible for Thrombolytic Therapy?: No - Exclusion Criteria 0-3hr Hx of previous IC hemorrhage, IC neoplasm, AVM or aneurysm: No Active internal bleeding: No Blding diathesis(low plt ct, inc PTT,INR>1.7 or use of NOAC): No Symptoms suggest subarachnoid hemorrhage: No CT demonstrates multilobar infarct(>1/3 cerebral hemiphere): No - Relative Exclusion Criteria 0-3h Stroke severity too mild: Yes - Ineligibility reason(s) Reasons No tPA given: See reason(s) noted above <Jeffery Balderas - Last Filed: 12/30/17 09:20> Critical Care Time/MDM Note - Medical Decision Making Note: 12/29/17 16:37 Documentation prepared by Mirella Calix, acting as medical claims manager for Jeffery Balderas MD. <Mirella Calix - Last Filed: 12/29/17 16:43> - Medical Decision Making Note: 12/29/17 16:26 A portion of this note was documented by scribe services under my direction. I have reviewed the details of the note, within reason, and agree with the documentation with the following case summary and management plan written by me. Patient treated in the ED. Nursing notes are reviewed and incorporated into the medical decision-making. Vital signs reviewed. Peripheral IV access obtained by the nurse, laboratory studies are drawn and sent, reviewed and interpreted by myself. Vital Signs Temp Pulse Resp BP Pulse Ox 98.0 F 99 H 18 163/104 100 12/29/17 15:23 12/29/17 15:23 12/29/17 15:23 12/29/17 15:23 12/29/17 15:23 57-year-old female with history of hyperlipidemia, migraines presents with right facial numbness since 2:30 PM today. The patient was in her usual state of health and she felt these tingling sensations along the right-sided face and the right-sided tongue but no slurring of speech. Denies any numbness or weakness in the upper or lower extremities. Patient reports feeling tired but denies any chest pain or shortness of breath. Denies recent illnesses, fevers, chills, dysuria, nausea, vomiting. The patient typically has migraines are on the left side and on the right side. The patient has had this several weeks ago with tingling on the right side that resolved. Differential includes stroke versus complex migraine. Head CT done shows no acute findings. Patient is ALLERGIC to aspirin so will not give patient aspirin. Though the patient is within the window, patient is in eligible for TPA given low stroke scale. Case was discussed with neurologist Dr. Stuart who agrees with no TPA given the reasons. The patient should be admitted to the hospital for further evaluation regarding the facial numbness. <Jeffery Balderas - Last Filed: 12/30/17 09:20> Discharge Disposition <Mirella Calix - Last Filed: 12/29/17 16:43> - Discharge Dispostion Last Admission D/C Date: 10/15/13 <Jeffery Balderas - Last Filed: 12/30/17 09:20> - Diagnosis Tingling of face
[2017-12-29] MEDS ORDERED: ACETAMINOPHEN 1000 MG/100 ML VIAL (NON FORMULARY) IVPB ONE (16:32)
[2017-12-29] MEDS ORDERED: ACETAMINOPHEN INJECTION 100 ML IVPB ONE (16:36)
[2017-12-29 18:45] LABS: ALBUMIN 4.7 g/dl (3.4-5.0); ANION GAP 5 (8-16); BILIRUBIN,TOTAL 0.3 mg/dL (0.2-1.0); BLOOD UREA NITROGEN 14 mg/dL (7-18); CALCIUM 9.8 mg/dL (8.5-10.1); CHLORIDE 105 mmol/L (98-107); CO2 28 mmol/L (21-32); CREATININE 0.8 mg/dL (0.55-1.02); GLUCOSE,RANDOM 81 mg/dL (74-106); POTASSIUM 4.6 mmol/L (3.5-5.1); SGOT/AST 22 U/L (15-37); SGPT/ALT 43 U/L (12-78); SODIUM 138 mmol/L (136-145); TOT PROT 8.5 g/dl (6.4-8.2)
[2017-12-29 18:46] LABS: ALK PHOS 100 U/L (45-117)
[2017-12-29 19:10] LABS: URINE APPEARANCE CLEAR; URINE BILIRUBIN NEGATIVE (<2.0 mg/dL); URINE BLOOD NEGATIVE (NEGATIVE); URINE COLOR STRAW; URINE GLUCOSE (UA) NEGATIVE (NEGATIVE); URINE KETONE TRACE (NEGATIVE); URINE LEUK ESTERASE NEGATIVE (NEGATIVE); URINE NITRITE NEGATIVE (NEGATIVE); URINE PROTEIN NEGATIVE (NEGATIVE); URINE UROBILINOGEN NEGATIVE mg/dL (0.2-1.0)
--- NOTE | 2017-12-29 21:53 | HP ---
Admitting History and Physical - Primary Care Physician PCP: Boby Weems - Admission Chief Complaint: R-facial numbness History of Present Illness: 57 y/o woman with a PMH Migraines, Asthma, HLD, Osteopenia, Concussion (2011). Who presents to the ED with R-sided facial numbness x14:30. Patient reports feeling fullness to her R- ear, with a burning sensation to the R- face. Patient reports having an episode of double vision one month ago, seeing her eye doctor-wnl. Patient denies slurred speech, blurred vision or COLLIER. Patient denies fever, chills, cough, SOB, dizziness, CP, palpitations, AP, N/V/D, dysuria History Source: Patient Limitations to Obtaining History: No Limitations - Past Medical History FAMILY READINESS SUPPORT ASSISTANT: Yes: Migraine Cardiovascular: Yes: Hyperlipdemia Pulmonary: Yes: Asthma ...LMP: 02/10/13 Endocrine: Yes: Osteopenia Dermatology: Yes: Other (Rosacea) - Past Surgical History Additional Past Surgical History: TMJ - Smoking History Smoking history: Unknown if ever smoked Have you smoked in the past 12 months: No Aproximately how many cigarettes per day: 0 If you are a former smoker, when did you quit?: 1988 - Alcohol/Substance Use Hx Alcohol Use: No History of Substance Use: reports: None - Social History Usual Living Arrangement: Yes: With Spouse, With Child ADL: Independent History of Recent Travel: No Home Medications - Allergies Allergies/Adverse Reactions: Allergies Allergy/AdvReac Type Severity Reaction Status Date / Time shellfish derived Allergy Severe Difficulty Verified 12/29/17 15:22 Breathing Penicillins Allergy Intermediate Verified 12/29/17 15:22 aspirin Allergy Verified 12/29/17 15:22 avocado Allergy Verified 12/29/17 15:22 clindamycin Allergy Rash Verified 12/29/17 15:22 codeine Allergy Verified 12/29/17 15:22 doxycycline Allergy Verified 12/29/17 15:22 Fish Containing Products Allergy Verified 12/29/17 15:22 latex Allergy Rash Verified 12/29/17 15:22 nickel Allergy Verified 12/29/17 15:22 oxycodone Allergy Verified 12/29/17 15:22 - Home Medications Home Medications: Ambulatory Orders Atorvastatin Ca [Lipitor] 20 mg PO HS 10/08/16 Spironolactone 50 mg PO BID 10/08/16 Loratadine [Claritin] 10 mg PO ASDIR 06/15/17 Desipramine HCl [Norpramin -] 25 mg PO DAILY 12/29/17 Doxycycline Monohydrate [Oracea] 40 mg PO ASDIR 12/29/17 Montelukast Sodium [Singulair] 10 mg PO DAILY 12/29/17 Family Disease History - Family Disease History Family Disease History: Diabetes: Mother (HLD, Osteopenia, Bleeding Ulcer), Heart Disease: Grandparent (IN, PM, CHF, Stent, Renal Ca, Colon Ca, Skin Ca, Stroke,), Mother, CA: Grandparent, Other: Mother Review of Systems - Review of Systems Constitutional: reports: Malaise Eyes: reports: No Symptoms HENT: reports: Other (Ear Fullness) Neck: reports: No Symptoms Cardiovascular: reports: No Symptoms Respiratory: reports: No Symptoms Gastrointestinal: reports: No Symptoms Genitourinary: reports: No Symptoms Breasts: reports: No Symptoms Reported Musculoskeletal: reports: No Symptoms Integumentary: reports: No Symptoms Neurological: reports: Numbness (R- side of face) Endocrine: reports: No Symptoms Hematology/Lymphatic: reports: No Symptoms Psychiatric: reports: No Symptoms Physical Examination Vital Signs: Vital Signs Temperature 98.0 F 12/29/17 15:23 Pulse Rate 99 H 12/29/17 15:23 Respiratory Rate 18 12/29/17 15:23 Blood Pressure 163/104 12/29/17 15:23 O2 Sat by Pulse Oximetry (%) 100 12/29/17 16:00 Constitutional: Yes: Well Nourished, No Distress, Calm Eyes: Yes: WNL, Conjunctiva Clear, EOM Intact, PERRL HENT: Yes: WNL, Atraumatic, Normocephalic Neck: Yes: WNL, Supple, Trachea Midline Cardiovascular: Yes: WNL, Regular Rate and Rhythm, S1, S2 Respiratory: Yes: WNL, Regular, CTA Bilaterally Gastrointestinal: Yes: WNL, Normal Bowel Sounds, Soft ...Rectal Exam: Yes: Deferred Renal/: Yes: WNL Breast(s): Yes: WNL Musculoskeletal: Yes: Other (left knee LROM) Extremities: Yes: WNL Edema: No Peripheral Pulses WNL: Yes Integumentary: Yes: WNL Neurological: Yes: Alert, Oriented, Cran Nerves II-XII Intact, Numbness (R-face) , Paresthesia, Tingling (R- face). No: Aphasia, Dysarthria, Facial Droop, Pre- Existing Deficit ...Motor Strength: WNL Psychiatric: Yes: WNL, Alert, Oriented Labs: CBC, BMP 12/29/17 15:50 12/29/17 17:00 Laboratory Results - last 24 hr 12/29/17 12/29/17 12/29/17 15:50 15:50 15:50 WBC 7.7 RBC 4.71 Hgb 14.6 Hct 42.4 MCV 90.1 MCH 31.1 MCHC 34.5 RDW 13.1 Plt Count 308 D MPV 6.9 L Neutrophils % 57.6 Lymphocytes % 33.1 Monocytes % 7.7 Eosinophils % 1.3 Basophils % 0.3 PT with INR 11.20 INR 0.99 Sodium Potassium Chloride Carbon Dioxide Anion Gap BUN Creatinine Creat Clearance w eGFR Random Glucose Calcium Total Bilirubin AST ALT Alkaline Phosphatase Creatine Kinase 79 Troponin I < 0.02 Total Protein Albumin Cholesterol 205 H Total LDL Cholesterol 114 H HDL Cholesterol 83 H Urine Color Urine Appearance Urine pH Ur Specific [place] Urine Protein Urine Glucose (UA) Urine Ketones Urine Blood Urine Nitrite Urine Bilirubin Urine Urobilinogen Ur Leukocyte Esterase 12/29/17 12/29/17 17:00 19:01 WBC RBC Hgb Hct MCV MCH MCHC RDW Plt Count MPV Neutrophils % Lymphocytes % Monocytes % Eosinophils % Basophils % PT with INR INR Sodium 138 Potassium 4.6 Chloride 105 Carbon Dioxide 28 Anion Gap 5 L BUN 14 Creatinine 0.8 Creat Clearance w eGFR > 60 Random Glucose 81 Calcium 9.8 Total Bilirubin 0.3 D AST 22 ALT 43 Alkaline Phosphatase 100 Creatine Kinase Troponin I Total Protein 8.5 H Albumin 4.7 Cholesterol Total LDL Cholesterol HDL Cholesterol Urine Color Straw Urine Appearance Clear Urine pH 6.0 Ur Specific [place] 1.006 Urine Protein Negative Urine Glucose (UA) Negative Urine Ketones Trace H Urine Blood Negative Urine Nitrite Negative Urine Bilirubin Negative Urine Urobilinogen Negative Ur Leukocyte Esterase Negative Current Medications Generic Name Dose Route Start Last Admin Trade Name Freq PRN Reason Stop Dose Admin Ascorbic Acid 500 mg 12/30/17 10:00 Vitamin C - PO DAILY [facility] Atorvastatin Calcium 20 mg 12/29/17 22:00 Lipitor - PO HS TAYLER Desipramine HCl 25 mg 12/29/17 22:00 Norpramin - PO HS TAYLER Docusate Sodium 100 mg 12/29/17 22:00 Colace - PO BID TAYLER Sodium Chloride 1,000 mls @ 42 mls/hr 12/29/17 15:45 12/29/17 15:55 Normal Saline - IV 42 mls/hr ASDIR TAYLER Administration Loratadine 10 mg 12/30/17 10:00 Claritin - PO DAILY TAYLER Montelukast Sodium 10 mg 12/30/17 10:00 Singulair - PO DAILY TAYLER Non-Formulary Medication 40 mg 12/30/17 10:00 Doxycycline Monohydrate [Oracea] PO DAILY TAYLER Spironolactone 50 mg 12/29/17 22:00 Aldactone - PO BID TAYLER Intake & Output 12/26/17 12/27/17 12/28/17 12/29/17 23:59 23:59 23:59 23:59 Weight 60.328 kg Imaging - Results Chest X-ray: Image Reviewed Cat Scan: Report Reviewed, Image Reviewed EKG: Image Reviewed Problem List - Problems (1) Numbness of face Assessment/Plan: - r/o TIA vs CVA vs Arrhythmia - NIHSS 1 - Continue cardiac monitoring - CT Head- neg ICH, mild volume loss - Appreciate Neurology consult - Swallow Eval - Carotid doppler - Echo - Lipid Panel - Asa - Neuro checks - Fall precautions - TSH - HgbA1C - Caldwell Scale - HOB Code(s): R20.0 - ANESTHESIA OF SKIN (2) Tingling of face Assessment/Plan: - See Above Code(s): R20.1 - HYPOESTHESIA OF SKIN (3) Migraine Assessment/Plan: - r/o Complex Migraines - Head CT- neg ICH - Appreciate Neurology consult - Continue home med Code(s): G43.909 - MIGRAINE, UNSP, NOT INTRACTABLE, WITHOUT STATUS MIGRAINOSUS (4) HLD (hyperlipidemia) Assessment/Plan: - Continue Lipitor Code(s): E78.5 - HYPERLIPIDEMIA, UNSPECIFIED (5) Asthma Assessment/Plan: - stable - Continue home med Code(s): J45.909 - UNSPECIFIED ASTHMA, UNCOMPLICATED (6) Rosacea Assessment/Plan: - Continue Doxycyline Code(s): L71.9 - ROSACEA, UNSPECIFIED (7) DVT prophylaxis Assessment/Plan: - OOB - SCDs - Consider AC if LOS > 48 hrs Code(s): [id number] - Assessment/Plan This is a 57 y/o woman with a PMHx of HLD, Migraines, Asthma, Osteopenia, Concussion (2011). Placed in Telemetry Observation for Facial Numbness r/o TIA vs CVA, Complex Migraines. Visit type - Emergency Visit Emergency Visit: Yes ED Registration Date: 12/29/17 Care time: The patient presented to the Emergency Department on the above date and was hospitalized for further evaluation of their emergent condition. - New Patient This patient is new to me today: Yes Date on this admission: 12/29/17 - Critical Care Critical Care patient: No Hospitalist Screening - Colonoscopy Questionnaire Colonoscopy Questionnaire: Colonoscopy Questionnaire - Patient: 50 - 75 years old and never had a screening colonoscopy: No History of colon or rectal polyps, or CA: No History of IBD, Crohn's disease or UC: No History of abdominal radiation therapy as a child: No - Relative: 1 with colon or rectal CA, or polyps at age 60 or younger: No Colon or rectal CA diagnosed at age 45 or younger: No Multiple relatives with colon or rectal CA: No - Outcome: Screening Result: Negative Screen
[2017-12-29] MEDS ORDERED: DESIPRAMINE HCL 25 MG TABLET PO SCH (22:00)
[2017-12-29] MEDS ORDERED: DOCUSATE SODIUM 100 MG CAPSULE (FP) PO SCH (22:00)
[2017-12-29] MEDS ORDERED: PATIENT'S OWN MEDICATION (NON-FORMULARY) (Spironolactone [Spironolactone] 50 MG) PO SCH (22:00)
[2017-12-29] MEDS ORDERED: ATORVASTATIN CA 20 MG TABLET (FP) PO SCH (22:00)
[2017-12-29] MEDS ORDERED: SPIRONOLACTONE 25 MG TABLET (FP) PO SCH (22:00)
[2017-12-29] MEDS ORDERED: LORATADINE 10 MG TABLET PO ONE (22:39)
[2017-12-30 00:03] VITALS: BMI 22.7
[2017-12-30] MEDS ORDERED: SODIUM CHLORIDE 1,000 ML IV SCH (00:30)
[2017-12-30] MEDS ORDERED: ATORVASTATIN CA 20 MG TABLET (FP) PO SCH (00:30)
[2017-12-30] MEDS: DOCUSATE SODIUM 100 MG CAPSULE (FP) PO SCH ×2 (00:44→09:26)
[2017-12-30] MEDS: SPIRONOLACTONE 25 MG TABLET (FP) PO SCH ×2 (00:44→09:26)
[2017-12-30] MEDS: ACETAMINOPHEN 325 MG TABLET (FP) PO PRN ×3 (01:09→12:49)
[2017-12-30] MEDS ORDERED: PT OWN MED DRAWER 7, Y5N ONE (01:57)
[2017-12-30] MEDS ORDERED: DESIPRAMINE 25 MG PO SCH (02:00)
[2017-12-30 08:43] LABS: BASO % 0.3 % (0-2.0); HEMATOCRIT 37.8 % (32.4-45.2); HEMOGLOBIN 12.9 GM/dL (10.7-15.3); LYMPH % 35.3 % (8-40); MCH 30.6 pg (25.7-33.7); MCHC 34.1 g/dl (32.0-36.0); MEAN CELL VOLUME 89.8 fl (80-96); MEAN PLT VOLUME 6.7 fl (7.5-11.1); NEUT % 55.4 % (42.8-82.8); PLATELET COUNT 261 K/MM3 (134-434); RDW 12.9 % (11.6-15.6); WHITE BLOOD COUNT 5.3 K/mm3 (4.0-10.0)
[2017-12-30 09:05] LABS: ANION GAP 2 (8-16); BLOOD UREA NITROGEN 12 mg/dL (7-18); CALCIUM 8.9 mg/dL (8.5-10.1); CHLORIDE 109 mmol/L (98-107); CO2 29 mmol/L (21-32); CREATININE 0.7 mg/dL (0.55-1.02); GLUCOSE,RANDOM 91 mg/dL (74-106); MAGNESIUM 2.2 mg/dL (1.8-2.4); PHOSPHOROUS 3.6 mg/dL (2.5-4.9); POTASSIUM 4.1 mmol/L (3.5-5.1); SODIUM 140 mmol/L (136-145)
[2017-12-30] MEDS ORDERED: LORATADINE 10 MG TABLET PO SCH (10:00)
[2017-12-30] MEDS ORDERED: ASCORBIC ACID 500 MG TABLET (FP) PO SCH (10:00)
[2017-12-30] MEDS ORDERED: DOXYCYCLINE MONOHYDRATE 40 MG PO SCH (10:00)
[2017-12-30] MEDS ORDERED: MONTELUKAST NA 10 MG TABLET PO SCH (10:00)
[2017-12-30 10:04] VITALS: PULSE 94
--- NOTE | 2017-12-30 11:32 | EKG ---
Test Reason : Blood Pressure : / mmHG Vent. Rate : 087 BPM Atrial Rate : 087 BPM P-R Int : 156 ms QRS Dur : 068 ms QT Int : 364 ms P-R-T Axes : 058 074 055 degrees QTc Int : 438 ms NORMAL SINUS RHYTHM NORMAL ECG WHEN COMPARED WITH ECG OF 15-JUN-2017 20:36, NO SIGNIFICANT CHANGE WAS FOUND Confirmed by RONAK BOYER MD ([id number]) on 12/30/2017 11:31:49 AM Referred By: Confirmed By:RONAK BOYER MD
--- NOTE | 2017-12-30 12:56 | CONSULT ---
Consult - text type - Consultation Consultation Note: Neurology History of Present Illness The patient is a 57 year old female, with a significant past medical history of hyperlipidemia and migraines, who presents to the emergency department with right sided facial numbness. Reportedly, the patient report she was shopping when suddenly she began to feel right sided facial numbness. Patient reported she was in her usual state of health, but while shopping she began to experience numbness and tingling on the right side of her face and on her tongue. She denies any slurred speech, headache, dizziness, lightheadedness, changes in vision, upper or lower extremity numbness/tingling/weakness. Patient reports a similar episode several weeks ago, which resolved on its own. Patient reports feeling tired, but denies chest pain, shortness of breath, diaphoresis, or palpitations. She denies any recent illness, fever, chills, cough, dizziness , nausea, or vomiting. SHe does have history of migraine but this was not accompanied by headache though could be aura if she does develop headache. CT head completed and did not show acute changes. MRI brain discussed with patient highly claustrophobic and therefore repeat CT head completed and did not show acute changes. Carotid doppler reviewed and without HD significant stenosis. - Past Medical History Anemia: No Asthma: Yes Cancer: No Cardiac Disorders: Yes (MVP) CVA: No COPD: No CHF: No DVT: No Dementia: No Diabetes: No GI Disorders: Yes (SPASTIC COLON, GERD) Disorders: No HTN: Yes Hypercholesterolemia: Yes Liver Disease: No Seizures: No Thyroid Disease: No Other medical history: migraines, op, - Surgical History Abdominal Surgery: No Appendectomy: No Cardiac Surgery: No Cholecystectomy: No Lung Surgery: No Neurologic Surgery: No Orthopedic Surgery: No - Immunization History Immunization Up to Date: Yes - Suicide/Smoking/Psychosocial Hx Smoking Status: No Smoking History: Unknown if ever smoked Have you smoked in the past 12 months: No Number of Cigarettes Smoked Daily: 0 If you are a former smoker, when did you quit?: 1989 Cigars Per Day: 0 Information on smoking cessation initiated: No Hx Alcohol Use: No Drug/Substance Use Hx: No Substance Use Type: None, Alcohol Hx Substance Use Treatment: No - Past Medical History Allergies/Adverse Reactions: Allergies Allergy/AdvReac Type Severity Reaction Status Date / Time shellfish derived Allergy Severe Difficulty Verified 12/29/17 15:22 Breathing Penicillins Allergy Intermediate Verified 12/29/17 15:22 aspirin Allergy Verified 12/29/17 15:22 avocado Allergy Verified 12/29/17 15:22 clindamycin Allergy Rash Verified 12/29/17 15:22 codeine Allergy Verified 12/29/17 15:22 doxycycline Allergy Verified 12/29/17 15:22 Fish Containing Products Allergy Verified 12/29/17 15:22 latex Allergy Rash Verified 12/29/17 15:22 nickel Allergy Verified 12/29/17 15:22 oxycodone Allergy Verified 12/29/17 15:22 Home Medications: Ambulatory Orders Atorvastatin Ca [Lipitor] 20 mg PO HS 10/08/16 Spironolactone 50 mg PO BID 10/08/16 Loratadine [Claritin] 10 mg PO ASDIR 06/15/17 Desipramine HCl [Norpramin -] 25 mg PO DAILY 12/29/17 Doxycycline Monohydrate [Oracea] 40 mg PO ASDIR 12/29/17 Montelukast Sodium [Singulair] 10 mg PO DAILY 12/29/17 Review of Systems GENERAL/CONSTITUTIONAL: No fever or chills. No weakness. HEAD, EYES, EARS, NOSE AND THROAT: +Right sided tongue numbness/tingling. No change in vision. No ear pain or discharge. No sore throat. CARDIOVASCULAR: No chest pain or shortness of breath. RESPIRATORY: No cough, wheezing, or hemoptysis. GASTROINTESTINAL: No nausea, vomiting, diarrhea or constipation. GENITOURINARY: No dysuria, frequency, or change in urination. MUSCULOSKELETAL: No joint or muscle swelling or pain. No neck or back pain. SKIN: No rash NEUROLOGIC: +Right sided facial numbness. No headache, vertigo, loss of consciousness, or change in strength/sensation. ENDOCRINE: No increased thirst. No abnormal weight change. HEMATOLOGIC/LYMPHATIC: No anemia, easy bleeding, or history of blood clots. ALLERGIC/IMMUNOLOGIC: No hives or skin allergy. Vital Signs Period Temp Pulse Resp BP Sys/Rodriguez Pulse Ox Last 24 Hr 97.8 F-98.4 F 78-99 16-18 116-163/69-104 100-100 GENERAL: Awake, alert, and fully oriented, in no acute distress. HEAD: No signs of trauma EYES: PERRLA, EOMI, sclera anicteric, conjunctiva clear ENT: Auricles normal inspection, hearing grossly normal, nares patent NECK: Normal ROM, supple LUNGS: Breath sounds equal, clear to auscultation bilaterally. No wheezes, and no crackles HEART: Regular rate and rhythm, normal S1 and S2, no murmurs, rubs or gallops ABDOMEN: Soft, nontender No guarding, no rebound. No masses EXTREMITIES: Normal range of motion, no edema. No clubbing or cyanosis. No cords, erythema, or tenderness SKIN: Warm, Dry, normal turgor, no rashes or lesions noted. CN II-XII intact except decreased sensation over R side of face. 5/5 strength upper and lower extremities. Speech normal, gait normal. No pronator drift. No dysmetria. Imaging: CT head reviewed X 2 Carotiod Doppler reviewed Plan: 57 year old female, with a significant past medical history of hyperlipidemia and migraines, who presents to the emergency department with right sided facial numbness. Reportedly, the patient report she was shopping when suddenly she began to feel right sided facial numbness. Patient reported she was in her usual state of health, but while shopping she began to experience numbness and tingling on the right side of her face and on her tongue. SHe does have history of migraine but this was not accompanied by headache though could be aura if she does develop headache. CT head completed and did not show acute changes. MRI brain discussed with patient highly claustrophobic and therefore repeat CT head completed and did not show acute changes. Carotid doppler reviewed and without HD significant stenosis. Discussed possibly trigeminal neuralgia and discussed medication options but patient would like to defer for now Scheduled to see me in office on and advised her to keep appointment and she was in agreement Relaxation recommended, if new symptoms develop return to ER Neurologically otherwise stable Plan for discharge
[2017-12-30 14:37] VITALS: BP 131/80; TEMP 97.8
--- NOTE | 2017-12-30 15:29 | DS ---
Physical Exam: SUBJECTIVE: Patient seen and examined OBJECTIVE: Vital Signs Period Temp Pulse Resp BP Sys/Rodriguez Pulse Ox Last 24 Hr 97.8 F-98.4 F 78-94 16-18 116-131/69-80 100-100 PHYSICAL EXAM GENERAL: The patient is awake, alert, and fully oriented, in no acute distress. HEAD: Normal with no signs of trauma. EYES: PERRL, extraocular movements intact, sclera anicteric, conjunctiva clear. ENT: Ears normal, nares patent, oropharynx clear without exudates, moist mucous membranes. NECK: Trachea midline, full range of motion, supple. LUNGS: Breath sounds equal, clear to auscultation bilaterally, no wheezes, no crackles, no accessory muscle use. HEART: Regular rate and rhythm, S1, S2 without murmur, rub or gallop. ABDOMEN: Soft, nontender, nondistended, normoactive bowel sounds, no guarding, no rebound, no hepatosplenomegaly, no masses. EXTREMITIES: 2+ pulses, warm, well-perfused, no edema. NEUROLOGICAL: Cranial nerves II through XII grossly intact. Normal speech, gait not observed. PSYCH: Normal mood, normal affect. SKIN: Warm, dry, normal turgor, no rashes or lesions noted. LABS Laboratory Results - last 24 hr 12/29/17 12/29/17 12/29/17 15:50 15:50 15:50 WBC 7.7 RBC 4.71 Hgb 14.6 Hct 42.4 MCV 90.1 MCH 31.1 MCHC 34.5 RDW 13.1 Plt Count 308 D MPV 6.9 L Neutrophils % 57.6 Lymphocytes % 33.1 Monocytes % 7.7 Eosinophils % 1.3 Basophils % 0.3 PT with INR 11.20 INR 0.99 Sodium Potassium Chloride Carbon Dioxide Anion Gap BUN Creatinine Creat Clearance w eGFR Random Glucose Calcium Phosphorus Magnesium Total Bilirubin AST ALT Alkaline Phosphatase Creatine Kinase 79 Troponin I < 0.02 Total Protein Albumin Cholesterol 205 H Total LDL Cholesterol 114 H HDL Cholesterol 83 H Urine Color Urine Appearance Urine pH Ur Specific [place] Urine Protein Urine Glucose (UA) Urine Ketones Urine Blood Urine Nitrite Urine Bilirubin Urine Urobilinogen Ur Leukocyte Esterase 12/29/17 12/29/17 12/29/17 17:00 19:01 22:30 WBC RBC Hgb Hct MCV MCH MCHC RDW Plt Count MPV Neutrophils % Lymphocytes % Monocytes % Eosinophils % Basophils % PT with INR INR Sodium 138 Potassium 4.6 Chloride 105 Carbon Dioxide 28 Anion Gap 5 L BUN 14 Creatinine 0.8 Creat Clearance w eGFR > 60 Random Glucose 81 Calcium 9.8 Phosphorus Magnesium Total Bilirubin 0.3 D AST 22 ALT 43 Alkaline Phosphatase 100 Creatine Kinase Troponin I < 0.02 Total Protein 8.5 H Albumin 4.7 Cholesterol Total LDL Cholesterol HDL Cholesterol Urine Color Straw Urine Appearance Clear Urine pH 6.0 Ur Specific [place] 1.006 Urine Protein Negative Urine Glucose (UA) Negative Urine Ketones Trace H Urine Blood Negative Urine Nitrite Negative Urine Bilirubin Negative Urine Urobilinogen Negative Ur Leukocyte Esterase Negative 12/30/17 12/30/17 08:25 08:25 WBC 5.3 D RBC 4.20 Hgb 12.9 D Hct 37.8 MCV 89.8 MCH 30.6 MCHC 34.1 RDW 12.9 Plt Count 261 MPV 6.7 L Neutrophils % 55.4 Lymphocytes % 35.3 Monocytes % 7.0 Eosinophils % 2.0 Basophils % 0.3 PT with INR INR Sodium 140 Potassium 4.1 Chloride 109 H Carbon Dioxide 29 Anion Gap 2 L BUN 12 Creatinine 0.7 Creat Clearance w eGFR Random Glucose 91 Calcium 8.9 Phosphorus 3.6 Magnesium 2.2 Total Bilirubin AST ALT Alkaline Phosphatase Creatine Kinase Troponin I < 0.02 Total Protein Albumin Cholesterol Total LDL Cholesterol HDL Cholesterol Urine Color Urine Appearance Urine pH Ur Specific [place] Urine Protein Urine Glucose (UA) Urine Ketones Urine Blood Urine Nitrite Urine Bilirubin Urine Urobilinogen Ur Leukocyte Esterase HOSPITAL COURSE: Date of Admission:12/29/17 Date of Discharge: 12/30/17 57 year old female, with a significant past medical history of hyperlipidemia and migraines, who presents to the emergency department with right sided facial numbness. Reportedly, the patient report she was shopping when suddenly she began to feel right sided facial numbness. Patient reported she was in her usual state of health, but while shopping she began to experience numbness and tingling on the right side of her face and on her tongue. SHe does have history of migraine but this was not accompanied by headache though could be aura if she does develop headache. CT head completed and did not show acute changes. MRI brain discussed with patient highly claustrophobic and therefore repeat CT head completed and did not show acute changes. Carotid doppler reviewed and without HD significant stenosis. Discussed possibly trigeminal neuralgia and discussed medication options but patient would like to defer for now Scheduled to see me in office on and advised her to keep appointment and she was in agreement Relaxation recommended, if new symptoms develop return to ER Neurologically otherwise stable Plan for discharge Discharge Summary Reason For Visit: TINGLING SENSATION IN FACE Current Active Problems Asthma (Acute) DVT prophylaxis (Acute) HLD (hyperlipidemia) (Acute) Migraine (Acute) Numbness of face (Acute) Rosacea (Acute) Tingling of face (Acute) - Instructions Referrals: Boby Weems MD [Primary Care Provider] - - Home Medications Comprehensive Discharge Medication List: Ambulatory Orders Atorvastatin Ca [Lipitor] 20 mg PO HS 10/08/16 Spironolactone 50 mg PO BID 10/08/16 Loratadine [Claritin] 10 mg PO ASDIR 06/15/17 Desipramine HCl [Norpramin -] 25 mg PO DAILY 12/29/17 Doxycycline Monohydrate [Oracea] 40 mg PO ASDIR 12/29/17 Montelukast Sodium [Singulair] 10 mg PO DAILY 12/29/17
== END 2017-12-30 16:30 | disposition home or self-care (01) ==
LOC: JER 15:21 → JERBED 19:56 → J4W 23:10
PROVIDERS: ADMIT Internal Medicine; ATTEND Nurse Practitioner Acute Care
PROC: 3E033GC Introduction of Other Therapeutic Substance into Peripheral Vein, Percutaneous Approach (ICD-10-PCS; principal; 2017-12-29)
PROC: 3E0337Z Introduction of Electrolytic and Water Balance Substance into Peripheral Vein, Percutaneous Approach (ICD-10-PCS; 2017-12-29)
DX: R20.2 Paresthesia of skin (principal); L71.9 Rosacea, unspecified; I10 Essential (primary) hypertension; E78.5 Hyperlipidemia, unspecified; I34.1 Nonrheumatic mitral (valve) prolapse; J45.909 Unspecified asthma, uncomplicated; K21.9 Gastro-esophageal reflux disease without esophagitis; G43.909 Migraine, unspecified, not intractable, without status migrainosus; K58.9 Irritable bowel syndrome, unspecified; Z91.013 Allergy to seafood; Z88.0 Allergy status to penicillin; Z88.1 Allergy status to other antibiotic agents; Z88.2 Allergy status to sulfonamides; Z88.5 Allergy status to narcotic agent; Z91.040 Latex allergy status
CPT/HCPCS: 36415; 70450-TC; 71045-TC-FY; 80048; 80053; 81003; 82465; 82550; 83718; 83721; 83735; 84100; 84484; 85025; 85610; 93005; 93010; 93880-TC; 99285-25; G0378; J0131; J7030

== ENCOUNTER 2018-05-10 15:20 | Emergency (ER) | payer OTHER, BC ==
[2018-05-10 15:46] VITALS: BP 125/69; PULSE 73; TEMP 98.6; BMI 23.6
[2018-05-10] MEDS ORDERED: ONDANSETRON *ODT* 4 MG TABLET SL ONE (16:32)
[2018-05-10] MEDS ORDERED: ONDANSETRON *ODT* 4 MG TABLET ONE (16:37)
--- NOTE | 2018-05-10 16:37 | PDOC ---
History of Present Illness - General Chief Complaint: Headache Stated Complaint: STRUCK HEAD YESTERDAY Time Seen by Provider: 05/10/18 16:32 - History of Present Illness Initial Comments: 05/10/18 17:01 Chief complaint: Headache, nausea, light sensitivity History of present illness: Intermittent headache today described as a sharp stabbing pain lasting minutes and subsiding spontaneously. Company but always of nausea, photophobia, no vomiting or abdominal pain or diarrhea. Struck her head on the bottom of a television that was hanging on the wall yesterday. No loss of consciousness at that time. No other severe symptoms. Review of systems: Denies chest pain, shortness of breath, abdominal pain, vomiting or diarrhea, urinary tract symptoms, vaginal bleeding or discharge, fever or chills, URI symptoms, sore throat, cough, focal neurologic symptoms or unsteadiness of gait Past medical history: Migraine headaches, cervical disc herniation, prior concussion many years ago Social/family history: No tobacco alcohol or drugs. , stable home and family, otherwise noncontributory Physical exam: Alert and oriented well-developed well-nourished no acute distress cheerful and cooperative Afebrile, vital signs normal Head atraumatic. There is no abrasion, laceration, contusion, or hematoma visible or palpable PERRLA 3 mm, fundi benign with sharp disc margins and good central venous pulsations. ENT clear Neck supple without bruit mass or nodes. There is good range of motion without significant pain. There is no point tenderness or deformity of the cervical vertebrae Chest clear to P&A. Full breath sounds bilaterally. No chest wall or rib cage tenderness or deformity CV S1 and S2 normal without murmur rub or gallop pulses full and symmetric no JVD or edema no bruits Abdomen soft nontender without mass or organomegaly Neurological C2 to 12 intact. Strength full and symmetric. No focal sensory or motor deficits. Gait stable and unimpaired. No obvious photophobia at present. Impression: No sign of intracranial hemorrhage. Possible mild concussion. Neurological stable Plan: Reassure. Tylenol. Zofran. Head injury instructions and recheck if condition worsens. Declines a CT of the head due to to prior CTs within the last few weeks and concerns regarding radiation side effects. She will return for further evaluation if condition worsens as discussed. Fully ambulatory and in no significant distress on discharge with to follow-up as directed Past History - Past Medical History Allergies/Adverse Reactions: Allergies Allergy/AdvReac Type Severity Reaction Status Date / Time shellfish derived Allergy Severe Difficulty Verified 05/10/18 16:36 Breathing Penicillins Allergy Intermediate Verified 05/10/18 16:36 aspirin Allergy Verified 05/10/18 16:36 avocado Allergy Verified 05/10/18 16:36 clindamycin Allergy Rash Verified 05/10/18 16:36 codeine Allergy Verified 05/10/18 16:36 doxycycline Allergy Verified 05/10/18 16:36 Fish Containing Products Allergy Verified 05/10/18 16:36 latex Allergy Rash Verified 05/10/18 16:36 nickel Allergy Verified 05/10/18 16:36 oxycodone Allergy Verified 05/10/18 16:36 sesame seed Allergy Verified 05/10/18 16:36 Home Medications: Ambulatory Orders Spironolactone 50 mg PO BID 10/08/16 Ondansetron [Zofran Odt -] 4 - 8 mg SL TID PRN #12 od.tablet 05/10/18 Rosuvastatin Calcium [Crestor] 5 mg PO HS 05/10/18 Sertraline HCl [Zoloft -] 50 mg PO DAILY 05/10/18 Anemia: No Asthma: Yes Cancer: No Cardiac Disorders: Yes (MVP) CVA: No COPD: No CHF: No DVT: No Dementia: No Diabetes: No GI Disorders: Yes (SPASTIC COLON, GERD) Disorders: No HTN: Yes Hypercholesterolemia: Yes Liver Disease: No Seizures: No Thyroid Disease: No - Surgical History Abdominal Surgery: No Appendectomy: No Cardiac Surgery: No Cholecystectomy: No Lung Surgery: No Neurologic Surgery: No Orthopedic Surgery: No - Immunization History Immunization Up to Date: Yes - Suicide/Smoking/Psychosocial Hx Smoking Status: No Smoking History: Former smoker Have you smoked in the past 12 months: No Number of Cigarettes Smoked Daily: 0 If you are a former smoker, when did you quit?: 1988 Cigars Per Day: 0 Information on smoking cessation initiated: No Hx Alcohol Use: No Drug/Substance Use Hx: No Substance Use Type: None Hx Substance Use Treatment: No *Physical Exam - Vital Signs Last Vital Signs Temp Pulse Resp BP Pulse Ox 98.6 F 73 16 125/69 100 05/10/18 15:36 05/10/18 15:36 05/10/18 15:36 05/10/18 15:36 05/10/18 15:36 *DC/Admit/Observation/Transfer Diagnosis at time of Disposition: Head injury Qualifiers: Encounter type: initial encounter Qualified Code(s): S09.90XA - Unspecified injury of head, initial encounter - Discharge Dispostion Disposition: HOME Condition at time of disposition: Stable Decision to Admit order: No - Prescriptions Prescriptions: Ondansetron [Zofran Odt -] 4 - 8 mg SL TID PRN #12 od.tablet PRN Reason: nausea, dizzyness - Referrals Referrals: Boby Weems MD [Primary Care Provider] - 24 hours - Patient Instructions Printed Discharge Instructions: DI for Closed Head Injury Additional Instructions: Rest, Tylenol, Zofran as needed. Avoid excessive visual stimulation and bright lights. Return to ER if symptoms worsen. Otherwise see primary care doctor for follow-up as directed. Use the soft collar for comfort. - Post Discharge Activity
== END 2018-05-10 16:41 | disposition home or self-care (01) ==
LOC: FER 15:20
DX: S09.90XA Unspecified injury of head, initial encounter (principal); W22.03XA Walked into furniture, initial encounter; Y93.89 Activity, other specified; Y92.89 Other specified places as the place of occurrence of the external cause; Z87.891 Personal history of nicotine dependence; J45.909 Unspecified asthma, uncomplicated; I10 Essential (primary) hypertension; E78.00 Pure hypercholesterolemia, unspecified
CPT/HCPCS: 99281-25; Q0162

== ENCOUNTER 2018-07-17 21:14 | Observation (INO) | payer BC, OTHER ==
[2018-07-17 21:21] VITALS: BMI 23.8
[2018-07-17] MEDS ORDERED: SODIUM CHLORIDE 1,000 ML IV STA (21:53)
[2018-07-17] MEDS ORDERED: methylPREDNISolone NA SUCC 125 MG/2 ML VIAL IVPB ONE (21:53)
--- NOTE | 2018-07-17 21:53 | PDOC ---
History of Present Illness - General History Source: Patient, Old Records Exam Limitations: No Limitations - History of Present Illness Initial Comments: 07/17/18 23:16 Patient is a 58 year old female with a significant past medical history of HLD, Asthma, Migraine, Osteopenia, who presents to the ED with complaints of allergic reaction that began earlier this week. Patient reports getting a shot of humira on July 04, and began to experience an allergic reaction shortly after. She reports experiencing nausea, eye pain, photophobia, ear discomfort and full body rash. Patient reports going to see her PCP yesterday after the development of the rash who prescribed her Z pack and prednisone. She reports seeing her senior administrative associate this morning who prescribed her Zyrtec, and advised her to come into the ED for further evaluation if the symptoms did not alleviate or began to worsen. As per , patient began to experience shortness of breath that increase with exertion as well as Diffuse body pain that she stated felt like a stabbing pain. Denies chest pain,. Denies vomiting. Denies fevers, chills. Denies trauma to affected area. Denies contact with sick individuals, out of state travelling. Denies any other symptoms. Allergies: shellfish, Penicillins, aspirin, avocado, clindamycin, codeine, doxycycline, Fish, latex, nickel, oxycodone Social history: Lives with . No smoking. No alcohol. No illicit drugs. Surgical history: TMJ PMD: Dr. Boby Weems <Sebastián Ya - Last Filed: 07/17/18 23:16> <Dorys Pratt - Last Filed: 07/18/18 01:17> - General Chief Complaint: Allergic Reaction Stated Complaint: ALLERGIC REACTION Time Seen by Provider: 07/17/18 21:52 Past History <Sebastián Ya - Last Filed: 07/17/18 23:16> - Past Medical History Anemia: No Asthma: Yes Cancer: No Cardiac Disorders: Yes (MVP) CVA: No COPD: No CHF: No DVT: No Dementia: No Diabetes: No GI Disorders: Yes (SPASTIC COLON, GERD) Disorders: No HTN: Yes Hypercholesterolemia: Yes Liver Disease: No Seizures: No Thyroid Disease: No - Surgical History Abdominal Surgery: No Appendectomy: No Cardiac Surgery: No Cholecystectomy: No Lung Surgery: No Neurologic Surgery: No Orthopedic Surgery: No - Immunization History Immunization Up to Date: Yes - Suicide/Smoking/Psychosocial Hx Smoking Status: No Smoking History: Former smoker Have you smoked in the past 12 months: No Number of Cigarettes Smoked Daily: 0 If you are a former smoker, when did you quit?: 1989 Cigars Per Day: 0 Information on smoking cessation initiated: No Hx Alcohol Use: No Drug/Substance Use Hx: No Substance Use Type: None Hx Substance Use Treatment: No <Dorys Pratt - Last Filed: 07/18/18 01:17> - Past Medical History Allergies/Adverse Reactions: Allergies Allergy/AdvReac Type Severity Reaction Status Date / Time shellfish derived Allergy Severe Difficulty Verified 07/17/18 21:42 Breathing Penicillins Allergy Intermediate Verified 07/17/18 21:42 aspirin Allergy Verified 07/17/18 21:42 avocado Allergy Verified 07/17/18 21:42 clindamycin Allergy Rash Verified 07/17/18 21:42 codeine Allergy Verified 07/17/18 21:42 doxycycline Allergy Verified 07/17/18 21:42 Fish Containing Products Allergy Verified 07/17/18 21:42 latex Allergy Rash Verified 07/17/18 21:42 nickel Allergy Verified 07/17/18 21:42 oxycodone Allergy Verified 07/17/18 21:42 sesame seed Allergy Verified 07/17/18 21:42 pollen Allergy Uncoded 07/17/18 21:42 Home Medications: Ambulatory Orders Spironolactone 50 mg PO BID 10/08/16 Rosuvastatin Calcium [Crestor] 10 mg PO HS 05/10/18 Sertraline HCl [Zoloft -] 50 mg PO DAILY 05/10/18 Cetirizine HCl [Zyrtec -] 10 mg PO DAILY 07/17/18 Review of Systems - Review of Systems Able to Perform ROS?: Yes Comments:: 07/17/18 23:16 CONSTITUTIONAL: Absent: fever, chills, diaphoresis, generalized weakness, malaise, loss of appetite HEENT: +Eye pain. +photophobia. +Right ear pain. Absent: rhinorrhea, nasal congestion, throat pain, throat swelling, difficulty swallowing, mouth swelling, visual changes CARDIOVASCULAR: Absent: chest pain, syncope, palpitations, irregular heart rate, lightheadedness , peripheral edema RESPIRATORY: +shortness of breath, Absent: cough, dyspnea with exertion, orthopnea, wheezing, stridor, hemoptysis GASTROINTESTINAL: +abdominal pain. +Nausea. Absent: abdominal distension, vomiting, diarrhea, constipation, melena, hematochezia GENITOURINARY: Absent: dysuria, frequency, urgency, hesitancy, hematuria, flank pain, genital pain MUSCULOSKELETAL: Absent: myalgia, arthralgia, joint swelling SKIN: Absent: rash, itching, pallor HEMATOLOGIC/IMMUNOLOGIC: Absent: easy bleeding, easy bruising, lymphadenopathy, frequent infections ENDOCRINE: Absent: unexplained weight gain, unexplained weight loss, heat intolerance, cold intolerance NEUROLOGIC: Absent: headache, focal weakness or paresthesias, dizziness, unsteady gait, seizure, mental status changes, bladder or bowel incontinence PSYCHIATRIC: Absent: anxiety, depression, suicidal or homicidal ideation, hallucinations. All Other Systems: Reviewed and Negative <Sebastián Ya - Last Filed: 07/17/18 23:16> *Physical Exam - Vital Signs Last Vital Signs Temp Pulse Resp BP Pulse Ox 98.6 F 81 18 124/86 100 07/17/18 21:17 07/17/18 21:17 07/17/18 21:17 07/17/18 21:17 07/17/18 21:17 - Physical Exam Comments: 07/17/18 23:16 GENERAL: Well developed, well nourished. Awake and alert. In no acute distress. HEENT: Normocephalic, atraumatic. PERRLA, EOMI. No conjunctival pallor. Sclerae are non -icteric. Moist mucous membranes. Oropharynx is clear. NECK: Supple. Full ROM. No JVD. Carotid pulses 2+ and symmetric, without bruits. No thyromegaly. No lymphadenopathy. CARDIOVASCULAR: Regular rate and rhythm. No murmurs, rubs, or gallops. Distal pulses are 2+ and symmetric. PULMONARY: No evidence of respiratory distress. Lungs clear to auscultation bilaterally. No wheezing, rales or rhonchi. ABDOMINAL: +4 cm concentric area of erythema on right lower abdomen at injection site. Soft. Non-tender. Non-distended. No rebound or guarding. No organomegaly. Normoactive bowel sounds. MUSCULOSKELETAL Normal range of motion at all joints. No bony deformities or tenderness. No CVA tenderness. EXTREMITIES: No cyanosis. No clubbing. No edema. No calf tenderness. SKIN: Warm and dry. Normal capillary refill. No rashes. No jaundice. NEUROLOGICAL: Alert, awake, appropriate. Cranial nerves 2-12 intact. No deficits to light touch and temperature in face, upper extremities and lower extremities. No motor deficits in the in face, upper extremities and lower extremities. Normoreflexic in the upper and lower extremities. Normal speech. Toes are downgoing bilaterally. Gait is normal without ataxia. PSYCHIATRIC: Cooperative. Good eye contact. Appropriate mood and affect. <Sebastián Ya - Last Filed: 07/17/18 23:16> - Vital Signs Last Vital Signs Temp Pulse Resp BP Pulse Ox 98.6 F 81 18 124/86 100 07/17/18 21:17 07/17/18 21:17 07/17/18 21:17 07/17/18 21:17 07/17/18 21:17 <Dorys Pratt - Last Filed: 07/18/18 01:17> ED Treatment Course - LABORATORY CBC & Chemistry Diagram: 07/17/18 20:20 07/17/18 20:20 - ADDITIONAL ORDERS Additional order review: Laboratory Results 07/17/18 20:20 Sodium 141 Potassium 3.6 Chloride 105 Carbon Dioxide 27 Anion Gap 9 BUN 10 Creatinine 0.8 Creat Clearance w eGFR > 60 Random Glucose 103 Calcium 9.1 Total Bilirubin 0.3 AST 70 H ALT 74 H Alkaline Phosphatase 92 Total Protein 7.7 Albumin 4.2 07/17/18 20:20 RBC 4.38 MCV 87.8 MCHC 32.8 RDW 13.4 MPV 7.2 L Neutrophils % 59.3 Lymphocytes % 27.9 D Monocytes % 8.7 Eosinophils % 3.5 Basophils % 0.6 - Medications Given in the ED: ED Medications Discontinued Medications Generic Name Dose Route Start Last Admin Trade Name Freq PRN Reason Stop Dose Admin Sodium Chloride 1,000 mls @ 1,000 mls/hr 07/17/18 21:53 07/17/18 22:49 Normal Saline - IV 07/17/18 22:52 1,000 mls/hr ASDIR STA Administration Methylprednisolone Sodium Succinate 125 mg 07/17/18 21:53 07/17/18 22:49 Solu-Medrol - IVPB 07/17/18 21:54 125 mg ONCE ONE Administration <Sebastián Ya - Last Filed: 07/17/18 23:16> - LABORATORY CBC & Chemistry Diagram: 07/17/18 20:20 07/17/18 20:20 <Dorys Pratt - Last Filed: 07/18/18 01:17> Medical Decision Making - Medical Decision Making 07/17/18 23:57 58-year-old female with past medical history of multiple allergies, anxiety, and chronic joint pain, CHF Humira injection it July 03. HPI: she developed a maculopapular rash to her torso, frontal headache, new bump to her occipital area, and scattered stabbing pain to her body DENIES fever,chills,shortness of breath,throat hoarseness, pruritus,chest pain -no wheezing,no uvular edema Spoke with senior administrative associate Dr Leon ) and reviewed labs, the LFTs are sl elevated -plan :hydrate,pain meds ,repeat lfts in am 07/18/18 01:16 <Dorys Pratt - Last Filed: 07/18/18 01:17> *DC/Admit/Observation/Transfer - Attestations Scribe Attestion: 07/17/18 23:16 Documentation prepared by Sebastián Ya, acting as medical illustrator for Dorys Pratt MD. <Sebastián Ya - Last Filed: 07/17/18 23:16> - Discharge Dispostion Decision to Admit order: Yes <Dorys Pratt - Last Filed: 07/18/18 01:17> Diagnosis at time of Disposition: Encounter for monitoring of adalimumab therapy, Elevated liver enzymes, Maculopapular rash Allergic reaction Qualifiers: Encounter type: initial encounter Qualified Code(s): T78.40XA - Allergy, unspecified, initial encounter - Discharge Dispostion Condition at time of disposition: Stable - Referrals Referrals: Boby Weesm MD [Primary Care Provider] - - Patient Instructions - Post Discharge Activity
[2018-07-17] MEDS ORDERED: methylPREDNISolone NA SUCC 125 MG/2 ML VIAL ONE (21:59)
[2018-07-17] MEDS ORDERED: FAMOTIDINE 20 MG/50 ML IVPB 20 MG/50 ML MG IVPB ONE (22:16)
[2018-07-17 23:01] LABS: BASO % 0.6 % (0-2.0); EOS % 3.5 % (0-4.5); HEMATOCRIT 38.5 % (32.4-45.2); HEMOGLOBIN 12.6 GM/dL (10.7-15.3); LYMPH % 27.9 % (8-40); MCH 28.8 pg (25.7-33.7); MCHC 32.8 g/dl (32.0-36.0); MEAN CELL VOLUME 87.8 fl (80-96); MEAN PLT VOLUME 7.2 fl (7.5-11.1); MONO % 8.7 % (3.8-10.2); NEUT % 59.3 % (42.8-82.8); PLATELET COUNT 204 K/MM3 (134-434); RBC 4.38 M/mm3 (3.60-5.2); RDW 13.4 % (11.6-15.6); WHITE BLOOD COUNT 6.2 K/mm3 (4.0-10.0)
[2018-07-17 23:15] LABS: ALBUMIN 4.2 g/dl (3.4-5.0); ALK PHOS 92 U/L (45-117); ANION GAP 9 MMOL/L (8-16); BILIRUBIN,TOTAL 0.3 mg/dL (0.2-1); BLOOD UREA NITROGEN 10 mg/dL (7-18); CALCIUM 9.1 mg/dL (8.5-10.1); CHLORIDE 105 mmol/L (98-107); CO2 27 mmol/L (21-32); CREATININE 0.8 mg/dL (0.55-1.3); GLUCOSE,RANDOM 103 mg/dL (74-106); POTASSIUM 3.6 mmol/L (3.5-5.1); SGOT/AST 70 U/L (15-37); SGPT/ALT 74 U/L (13-61); SODIUM 141 mmol/L (136-145); TOT PROT 7.7 g/dl (6.4-8.2)
[2018-07-18] MEDS ORDERED: FAMOTIDINE 20 MG/50 ML IVPB 20 MG/50 ML MG IVPB ONE (00:06)
[2018-07-18] MEDS ORDERED: ACETAMINOPHEN 500 MG TABLET (FP) PO ONE (00:39)
[2018-07-18] MEDS ORDERED: ACETAMINOPHEN 325 MG TABLET (FP) ONE (01:08)
[2018-07-18 01:24] LABS: URINE APPEARANCE CLEAR; URINE BILIRUBIN NEGATIVE (<2.0 mg/dL); URINE COLOR AMBER; URINE GLUCOSE (UA) NEGATIVE (NEGATIVE); URINE KETONE TRACE (NEGATIVE); URINE LEUK ESTERASE NEGATIVE (NEGATIVE); URINE NITRITE NEGATIVE (NEGATIVE); URINE PROTEIN 1+ (NEGATIVE)
[2018-07-18 02:29] LABS: CALCIUM OXALATE CRYSTALS RARE /hpf (NONE SEEN); EPI CELLS RARE /HPF (FEW); URINE HYALINE CAST 3 /lpf; URINE MUCUS MANY
[2018-07-18] MEDS ORDERED: LACTATED RINGERS SOLUTION 1,000 ML IV SCH (03:45)
--- NOTE | 2018-07-18 03:59 | HP ---
CHIEF COMPLAINT: rash, itching, pain PCP: Dr. Weems HISTORY OF PRESENT ILLNESS: Patient is a 58 y/o female with a history of HLD, asthma, migraine, osteopenia with extensive Rheum workup who presents with rash, itching and pain in her shoulders. On July 04 patient received a shot of Humira for "arthritis complaints" that day she had upset stomach. 5 days ago she noted a rash with a raised [place] at the injection site and macular rash over her back and extremities. Three days ago she saw her PCP Dr. Weems who prescribed her prednisone and Zpack. She only took one dose of each. Yesterday she saw her brokerage clerk for the rash who told her if it worsens she should come to the hospital. She arrived at the hospital later that day saying the itching has worsened. ED attalexander spoke with brokerage clerk wo wanted patient admitted so her LFT's can be monitored. Patient reports have multiple allergies with many different reactions including foods and medications and itching to anaphylaxis. Patient states the rash has since gotten a little better and she is no longer itching. She reports having pain behind her eyes and this is different from the migraines she gets. She also reports having a sharp pain in her shoulder around her hip. She reports having photophobia and nausea. Patient follows with a spray maker and cocoa roaster as an outpatient. She also follows at [facility] for work up of her illnesses. She has a son with still's disease and her father had rheumatoid arthritis and chron's. Patient reports she has no changed her food intake, detergent, soaps or anything new in her life. Patient denies travel. Patient denies chest pain, SOB, numbness, tingling, or vomiting. ER course was notable for: (1) (2) (3) Recent Travel: denies PAST MEDICAL HISTORY: HLD, asthma, migraine, osteopenia, and anxiety PAST SURGICAL HISTORY: Social History: Smoking: denies Alcohol: denies Drugs: Family History: Allergies shellfish derived Allergy (Severe, Verified 07/17/18 21:42) Difficulty Breathing THROAT CLOSES Penicillins Allergy (Intermediate, Verified 07/17/18 21:42) - anaphylaxis RASH aspirin Allergy (Verified 07/17/18 21:42) avocado Allergy (Verified 07/17/18 21:42) - oral tingling clindamycin Allergy (Verified 07/17/18 21:42) Rash codeine Allergy (Verified 07/17/18 21:42) doxycycline Allergy (Verified 07/17/18 21:42) Fish Containing Products Allergy (Verified 07/17/18 21:42) latex Allergy (Verified 07/17/18 21:42) Rash nickel Allergy (Verified 07/17/18 21:42) oxycodone Allergy (Verified 07/17/18 21:42) sesame seed Allergy (Verified 07/17/18 21:42) pollen Allergy (Uncoded 07/17/18 21:42) HOME MEDICATIONS: Home Medications Medication Instructions Recorded Spironolactone 50 mg PO BID 10/08/16 Rosuvastatin Calcium [Crestor] 10 mg PO HS 05/10/18 Sertraline HCl [Zoloft -] 50 mg PO DAILY 05/10/18 Cetirizine HCl [Zyrtec -] 10 mg PO DAILY 07/17/18 REVIEW OF SYSTEMS CONSTITUTIONAL: Absent: fever, chills, diaphoresis, generalized weakness, malaise, loss of appetite, weight change HEENT: Absent: rhinorrhea, nasal congestion, throat pain, throat swelling, difficulty swallowing, mouth swelling, ear pain, eye pain, visual changes CARDIOVASCULAR: Absent: chest pain, syncope, palpitations, irregular heart rate, lightheadedness , peripheral edema RESPIRATORY: Absent: cough, shortness of breath, dyspnea with exertion, orthopnea, wheezing, stridor, hemoptysis GASTROINTESTINAL: Absent: abdominal pain, abdominal distension, nausea, vomiting, diarrhea, constipation, melena, hematochezia GENITOURINARY: Absent: dysuria, frequency, urgency, hesitancy, hematuria, flank pain, genital pain MUSCULOSKELETAL: arthralgia, Absent: myalgia, joint swelling, back pain, neck pain SKIN: rash Absent: itching, pallor HEMATOLOGIC/IMMUNOLOGIC: Absent: easy bleeding, easy bruising, lymphadenopathy, frequent infections ENDOCRINE: Absent: unexplained weight gain, unexplained weight loss, heat intolerance, cold intolerance NEUROLOGIC: Absent: headache, focal weakness or paresthesias, dizziness, unsteady gait, seizure, mental status changes, bladder or bowel incontinence PSYCHIATRIC: Absent: anxiety, depression, suicidal or homicidal ideation, hallucinations. PHYSICAL EXAMINATION Vital Signs - 24 hr 07/17/18 07/18/18 21:17 01:15 Temperature 98.6 F Pulse Rate 81 Pulse Rate [ 78 Apical] Respiratory 18 18 Rate Blood Pressure 124/86 Blood Pressure 126/74 [Right Arm] O2 Sat by Pulse 100 99 Oximetry (%) GENERAL: Awake, alert, and fully oriented, in no acute distress. HEAD: Normal with no signs of trauma. EYES: Pupils equal, round and reactive to light, extraocular movements intact, no papilledema EARS, NOSE, THROAT: Moist mucous membranes. NO lesions, excoriations or signs of rash in patients mouth, no uveitis NECK: Normal range of motion, supple without lymphadenopathy, JVD, or masses. LUNGS: Breath sounds equal, clear to auscultation bilaterally. No wheezes, and no crackles. No accessory muscle use. HEART: Regular rate and rhythm, normal S1 and S2 without murmur, rub or gallop. ABDOMEN: Soft, nontender, not distended, normoactive bowel sounds, no guarding, no rebound, no masses. No hepatomegaly or splenomegaly. MUSCULOSKELETAL: Normal range of motion at all joints. No bony deformities or tenderness. No CVA tenderness. UPPER EXTREMITIES: 2+ pulses, warm, well-perfused. LOWER EXTREMITIES: 2+ pulses, warm, well-perfused. No calf tenderness. No peripheral edema. NEUROLOGICAL: Cranial nerves II-XII intact. Normal speech. Normal gait. PSYCHIATRIC: Cooperative. Good eye contact. Appropriate mood and affect. SKIN: at RLQ patient has a 5x5cm circular non papular erythematous macule, diffuse small erythematous nonblanching macular rash over patients chest and back, with scant macules up patients face and on patients abdomen, scant macules on patients lower extremity, no macules noted on palms or soles Laboratory Results - last 24 hr CBC, BMP 07/17/18 20:20 07/17/18 20:20 ASSESSMENT/PLAN: Patient is a 58 y/o female with a history of HLD, asthma, migraine, osteopenia with extensive Rheum workup who presents with rash, itching and pain in her shoulders. 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 La - f/u Dr. Michelle , consider skin biopsy - f/u CBC, CMP, ESR, CRP, HIV, and hepatitis panel - patient follows with outpatient Derm, Rheumatoloy, and opthomology #mild transaminitis - could be 2/2 to humira vs statin - AST and ALT: 70 - hold statin - continue to trend #cystic acne - continue spironolactone #anxiety - continue Zolofot *Patient found to have IV connected to Gentamicin in ED before admitted to primary team service. Medication was not ordered by ED team. Visit type - Emergency Visit Emergency Visit: Yes ED Registration Date: 07/18/18 Care time: The patient presented to the Emergency Department on the above date and was hospitalized for further evaluation of their emergent condition. - New Patient This patient is new to me today: Yes Date on this admission: 07/18/18 - Critical Care Critical Care patient: No
[2018-07-18 04:08] LABS: BASO % 0.3 % (0-2.0); HEMATOCRIT 36.9 % (32.4-45.2); HEMOGLOBIN 12.1 GM/dL (10.7-15.3); LYMPH % 14.2 % (8-40); MCH 28.9 pg (25.7-33.7); MCHC 32.9 g/dl (32.0-36.0); MEAN PLT VOLUME 7.4 fl (7.5-11.1); MONO % 2.1 % (3.8-10.2); NEUT % 82.4 % (42.8-82.8); PLATELET COUNT 193 K/MM3 (134-434); RBC 4.19 M/mm3 (3.60-5.2); RDW 13.4 % (11.6-15.6); WHITE BLOOD COUNT 6.3 K/mm3 (4.0-10.0)
--- NOTE | 2018-07-18 04:26 | PN ---
Teaching Attending Note Name of Resident: Tiny Norton ATTENDING PHYSICIAN STATEMENT I saw and evaluated the patient. I reviewed the resident's note and discussed the case with the resident. I agree with the resident's findings and plan as documented. SUBJECTIVE: Patient is a 58-year-old female with past medical history significant for hypertension, asthma, migraines, anxiety, hyperlipidemia, suspected rheumatoid arthritis receiving Humira injections through her PCP. she states that she has a history of oral allergies and she does follow with an latent print examiner and screw machine adjuster automatic. She also follows with butter fat tester through [place].She is human in a stable and afebrile presenting to the emergency room. She has no signs of cellulitis. The rashes faint, maculopapular, spread throughout her torso. It was apparently on her arms earlier but is now improved. It is blanching and pruritic. She received her injection on , developed a rash around the area the day of injection that was soon followed by some stomach aches and eye pain when moving them. No loss of vision, no loss of ability to move, no blurry vision, etc. Some associated photophobia. She does see an opthomologist. She saw her Casing Crew earlier prior to admission who said that she should go to the ER if she felt worse and then she felt weaker and came in. No oral lesions. No target lesions. Rash is better now than it was on presentation. She was given steroids for this on monday but did not complete the course, only taking one dose because she didn't eat after her doctor's appt and felt weak. LFTs found to be slightly increased in the ER. 10 sys ROS done and negative aside from HPI PMH and PSH reviewed and are as per chart Social hx denies EtOH abuse, tobacco abuse FH asked and noncontributory OBJECTIVE: VS, labs, imaging reviewed NAD, AAO, resting comfortably in bed. Skin is regular temperature with lacy, faint, blanching maculopapular rash that is nonpalpable extending from the area under the breasts to the pectoral region. No arm, face, mucosal, etc. involvement noted. No blistering or sloughing. No palmar involvement, normal nails. RRR s1/2 no mgr Lungs CTAB with sym expansion NT ND +BS no eagle organomegaly CN2-12 wnl; no FND NC AT EOMI PERRLA Normal mood, appropriate behavior, euthymic affect Labs show slightly elevated LFTs with AST/ALT ~1:1 in the 70s range with normal bili/normal Alk Phos. Chemistry unremarkable. CBC unremarkable with EP% wnl Obtaining outside rheum workup from her private physician. ASSESSMENT AND PLAN: Mrs. Giordano is a 58 y/o CF presenting with a CC of pruritic rash and eye pain with concern that this could be related to a Humira injection recieved on 07/04. 1) Suspected hypersensitivity reaction to Humira Patient presents after getting a pruritic maculopapular rash that has been present for about 2 weeks associated with eye pain and nausea. The timeframe of this being 2 weeks leads us to consider that if any type of hyper sensitivity is present it would likely be delayed, but the rapid onset of irritation around the injection site could be secondary to the injection itself versus another type of hypersensitivity. It will be difficult for antibodies to have developed as this is her first time using the drug. -Avoid redosing humira at the time being -Prednisone 1mg/kg (60mg) today then begin taper but ultimately to defer to rheumatology/dermatology. She had some relief with 40mg Prednisone x1 on monday but did not complete the course. I doubt given the timeframe of this that it represents anaphylactic reaction but will cover with famotidine and diphenhydramine. Consulting dermatology/rheumatology. -I do not see evidence of SJS/TEN; we will of course do repeated exams. Hemodynamics stable; EP% wnl. Not at all thinking this is cellulitis. Will continue to monitor. Further testing per consultants aside from ESR and CRP. Would consider rheum workup but she has been following with rheum outpatient so would be prudent to obtain records from them in the interest of cost efficient care and not repeating her outpatient workup. 2) Transaminitis Patient is found to have a one-to-one elevation of her AST and ALT in the 70- range. She is not experiencing any abdominal pain, nausea, or vomitting; bilirubin is normal. She has no other symptoms that can be related to her hepatobiliary system. We will trend CMP, gently hydrate, and if needed involve GI if she worsens. -Questionably related to #1 -Obtain RUQ u/s to better delineate anatomy 3) HLD -Hold home statin given #2 4) HTN -Continue home meds; keep <160 while inpatient. 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 Full Code
[2018-07-18 04:30] LABS: ALK PHOS 91 U/L (45-117); ANION GAP 8 MMOL/L (8-16); BILIRUBIN,TOTAL 0.3 mg/dL (0.2-1); BLOOD UREA NITROGEN 10 mg/dL (7-18); CALCIUM 8.5 mg/dL (8.5-10.1); CHLORIDE 109 mmol/L (98-107); CO2 24 mmol/L (21-32); CREATININE 0.6 mg/dL (0.55-1.3); GLUCOSE,RANDOM 143 mg/dL (74-106); SGOT/AST 74 U/L (15-37); SGPT/ALT 84 U/L (13-61); SODIUM 140 mmol/L (136-145); TOT PROT 7.3 g/dl (6.4-8.2)
[2018-07-18] MEDS ORDERED: predniSONE 20 MG TABLET (UD) PO SCH (10:00)
[2018-07-18] MEDS ORDERED: diphenhydrAMINE HCL 25 MG CAPSULE (FP) PO SCH (10:00)
[2018-07-18] MEDS ORDERED: RANITIDINE HCL 150 MG TABLET (FP) PO SCH (10:00)
[2018-07-18] MEDS ORDERED: SPIRONOLACTONE 25 MG TABLET (FP) PO SCH (10:00)
[2018-07-18] MEDS ORDERED: SERTRALINE HCL 50 MG TABLET (FP) PO SCH (10:00)
[2018-07-18] MEDS ORDERED: ACETAMINOPHEN 325 MG TABLET (FP) PO PRN (13:24)
--- NOTE | 2018-07-18 13:29 | DS ---
Physical Examination Vital Signs: Vital Signs Temperature 36.9 C 07/18/18 07:38 Pulse Rate 56 L 07/18/18 07:38 Respiratory Rate 20 07/18/18 07:38 Blood Pressure 105/67 07/18/18 07:38 O2 Sat by Pulse Oximetry (%) 99 07/18/18 07:38 Constitutional: Yes: Well Nourished, No Distress, Calm Cardiovascular: Yes: Regular Rate and Rhythm. No: Gallop, Murmur, Rub Respiratory: Yes: Regular, CTA Bilaterally. No: Rales, Rhonchi, Wheezes Gastrointestinal: Yes: Normal Bowel Sounds, Soft. No: Distention, Tenderness Extremities: Yes: WNL Edema: No Labs: CBC, BMP 07/18/18 03:45 07/18/18 03:45 Discharge Summary Reason For Visit: ALLERGIC REACTION ELEVATED LIVER ENZYMES Current Active Problems Allergic reaction (Acute) Elevated liver enzymes (Acute) Encounter for monitoring of adalimumab therapy (Acute) Maculopapular rash (Acute) Hospital Course: Mrs Giordano is a 58 year old female who was admitted for a rash. She was given steroids and IVF, her rash has improved significantly and has almost completely resolved. She is feeling much improved now. She will see rheumatology and dermatology prior to discharge. She has very mild transaminitis that is stable, this can be monitored as an outpatient. Her hepatitis panels and HIV serology can also be followed up as an outpatient if they do not result while here. She is safe for discharge pending evaluation by rheumatology and dermatology. 32 minutes spent in preparation of this discharge Condition: Stable - Instructions Diet, Activity, Other Instructions: resume previous diet and activity Referrals: Boby Weems MD [Primary Care Provider] - Disposition: HOME - Home Medications Comprehensive Discharge Medication List: Ambulatory Orders Spironolactone 50 mg PO BID 10/08/16 Rosuvastatin Calcium [Crestor] 10 mg PO HS 05/10/18 Sertraline HCl [Zoloft -] 50 mg PO DAILY 05/10/18 Cetirizine HCl [Zyrtec -] 10 mg PO DAILY 07/17/18
[2018-07-18 13:48] VITALS: BP 119/73; PULSE 79; TEMP 98.1
--- NOTE | 2018-07-18 18:22 | CONSULT ---
Consult Consult Specialty:: Rheumatology - History of Present Illness History of Present Illness: 58 y/o female with a history of HLD, asthma, migraine, osteopenia and not specifies systemic inflammatory arthritis, admitted with skin rash, probably related to treatment with Humira. HPI. The patient has a 2 year history of pain and swelling in multiple joints, mainly in hands and she has had episodes of tendonitis, in particular Achilles tendon. The pain in hands is worse in the morning and accompanied by 2 hour morning stiffness. She has a 2 year history of neck pain radiated to shoulders , apparently related to disc disease in the cervical spine and she has been treated with epidural injections. She also reports mild discomfort in thoraco- lumbar region. The patient has been followed by a pouncing lathe operator at [facility] and she has noit been told what is her diagnosis. She refused Methotrexate in the past. On 07/04/18 she received one dose of Humira 40 mg SC. Soon after she got the medication she develop[ed diffuse pruritus with no rash and 4 days later dome swelling of the face with no difficulty in breathing or swallowing. Initially she improved with Benadryl. On 07/13/18 she developed supra-orbital region and rash at the site of injection of Humira. She was started on Prednisone 40 mg/d and today she developed mild morbiliform rash mainly in abdomen and back. Since Yesterday she is feeling better, however she considers there mild by slight progression of the skin rash. She denies diarrhea, shortness of breath or fever. Work-up in the hospital revealed normal ESR and mild elevation of liver function tests. 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 Cardio/Vascular: Yes: Hyperlipdemia Pulmonary: Yes: Asthma ...LMP: 02/10/13 ...: No Endocrine: Yes: Osteopenia Dermatology: Yes: Other (Rosacea) - Alcohol/Substance Use Hx Alcohol Use: No History of Substance Use: reports: None - Smoking History Smoking history: Former smoker Have you smoked in the past 12 months: No Aproximately how many cigarettes per day: 0 If you are a former smoker, when did you quit?: 1988 - Social History ADL: Independent History of Recent Travel: No Home Medications - Allergies Allergies/Adverse Reactions: Allergies Allergy/AdvReac Type Severity Reaction Status Date / Time shellfish derived Allergy Severe Difficulty Verified 07/17/18 21:42 Breathing Penicillins Allergy Intermediate Verified 07/17/18 21:42 aspirin Allergy Verified 07/17/18 21:42 avocado Allergy Verified 07/17/18 21:42 clindamycin Allergy Rash Verified 07/17/18 21:42 codeine Allergy Verified 07/17/18 21:42 doxycycline Allergy Verified 07/17/18 21:42 Fish Containing Products Allergy Verified 07/17/18 21:42 latex Allergy Rash Verified 07/17/18 21:42 mustard Allergy Unverified 07/18/18 12:26 nickel Allergy Verified 07/17/18 21:42 oxycodone Allergy Verified 07/17/18 21:42 potato Allergy Unverified 07/18/18 12:20 sesame seed Allergy Verified 07/17/18 21:42 all seeds and nuts Allergy Uncoded 07/18/18 12:23 fresh onion & garlic Allergy Uncoded 07/18/18 12:27 fruits and vegetables Allergy Uncoded 07/18/18 12:22 pollen Allergy Uncoded 07/17/18 21:42 - Home Medications Home Medications: Ambulatory Orders Spironolactone 50 mg PO BID 10/08/16 Rosuvastatin Calcium [Crestor] 10 mg PO HS 05/10/18 Sertraline HCl [Zoloft -] 50 mg PO DAILY 05/10/18 Cetirizine HCl [Zyrtec -] 10 mg PO DAILY 07/17/18 Family Disease History - Family Disease History Family Disease History: Diabetes: Mother, Heart Disease: Grandparent, Mother, CA : Grandparent, Other: Mother Review of Systems - Review of Systems Constitutional: reports: Malaise Eyes: reports: Other (Supraorbital tenderness.) HENT: reports: No Symptoms Neck: reports: Other (Chronic neck pain radiated to both shoulders) Cardiovascular: reports: No Symptoms Respiratory: reports: No Symptoms Gastrointestinal: reports: No Symptoms Breasts: reports: No Symptoms Reported Musculoskeletal: reports: Other (See HPI) Integumentary: reports: Other (See HPI) Physical Exam Vital Signs: Vital Signs Temperature 98.1 F 07/18/18 13:46 Pulse Rate 79 07/18/18 13:46 Respiratory Rate 21 H 07/18/18 13:46 Blood Pressure 119/73 07/18/18 13:46 O2 Sat by Pulse Oximetry (%) 99 07/18/18 11:33 Constitutional: Yes: Mild Distress Eyes: Yes: WNL HENT: Yes: WNL Neck: Yes: WNL Cardiovascular: Yes: WNL Respiratory: Yes: WNL Gastrointestinal: Yes: WNL Musculoskeletal: Yes: Other (Swelling of both wrists, MCPs and PIPs in both hands. Sacro-iliac joints, and hips were not tender. She had tenderness in the left knee (S/P arthrotscopic surgery). No tenderness in ankles or feet.) Labs: CBC, BMP 07/18/18 03:45 07/18/18 03:45 Laboratory Tests 07/17/18 07/18/18 07/18/18 20:20 01:10 03:45 ESR 18 Random Glucose 143 H Calcium 8.5 Total Bilirubin 0.3 AST 74 H ALT 84 H Alkaline Phosphatase 91 C-Reactive Protein Total Protein 7.3 Albumin 4.0 Urine Color [place] Urine Appearance Clear Urine pH 5.0 Ur Specific [place] 1.028 Urine Protein 1+ H Urine Glucose (UA) Negative Urine Ketones Trace H Urine Blood Negative Urine Nitrite Negative Urine Bilirubin Negative Urine Urobilinogen 2.0 H Ur Leukocyte Esterase Negative Urine WBC (Auto) <1 Urine RBC (Auto) <1 Ur Epithelial Cells Rare Calcium Oxalate Crystal Rare 07/18/18 07/18/18 03:45 03:45 ESR 15 Random Glucose Calcium Total Bilirubin AST ALT Alkaline Phosphatase C-Reactive Protein < 0.3 Total Protein Albumin Urine Color Urine Appearance Urine pH Ur Specific [place] Urine Protein Urine Glucose (UA) Urine Ketones Urine Blood Urine Nitrite Urine Bilirubin Urine Urobilinogen Ur Leukocyte Esterase Urine WBC (Auto) Urine RBC (Auto) Ur Epithelial Cells Calcium Oxalate Crystal Problem List - Problems (1) Allergic reaction Code(s): T78.40XA - ALLERGY, UNSPECIFIED, INITIAL ENCOUNTER Qualifiers: Encounter type: initial encounter Qualified Code(s): T78.40XA - Allergy, unspecified, initial encounter (2) Undifferentiated inflammatory arthritis Assessment/Plan: Systemic inflammatory arthritis, active. I do not have data of serology or radiological work-up. Rule out rheumatoid arthritis. Rule out axial spondyloarthritis. Code(s): M06.4 - INFLAMMATORY POLYARTHROPATHY (3) Maculopapular rash Assessment/Plan: Rul out delayed hypersensitivity reaction to Humira. Rule out other etiology. Plan. Continue with Prednisone 40 mg/d for 3 days and if the skin rash is not active, start tapering to 20mg./ Follow up with blow down operator and rheumatology. Code(s): R21 - RASH AND OTHER NONSPECIFIC SKIN ERUPTION
[2018-07-19 06:06] LABS: HEP.C VIRUS AB 0.1 s/co ratio (0.0-0.9)
== END 2018-07-18 19:06 | disposition home or self-care (01) ==
LOC: JER 21:14 → JERBED 07-18 01:13 → J6S 07-18 07:23
PROVIDERS: ADMIT Internal Medicine; ATTEND Internal Medicine
PROC: 3E0333Z Introduction of Anti-inflammatory into Peripheral Vein, Percutaneous Approach (ICD-10-PCS; principal; 2018-07-18)
PROC: 3E033GC Introduction of Other Therapeutic Substance into Peripheral Vein, Percutaneous Approach (ICD-10-PCS; 2018-07-18)
PROC: 3E0337Z Introduction of Electrolytic and Water Balance Substance into Peripheral Vein, Percutaneous Approach (ICD-10-PCS; 2018-07-18)
DX: T78.40XA Allergy, unspecified, initial encounter (principal); X58.XXXA Exposure to other specified factors, initial encounter; R74.0 Nonspecific elevation of levels of transaminase and lactic acid dehydrogenase [LDH]; R94.5 Abnormal results of liver function studies; R21 Rash and other nonspecific skin eruption; Z79.899 Other long term (current) drug therapy; I10 Essential (primary) hypertension; E78.5 Hyperlipidemia, unspecified; M85.80 Other specified disorders of bone density and structure, unspecified site; J45.909 Unspecified asthma, uncomplicated; I34.1 Nonrheumatic mitral (valve) prolapse; K21.9 Gastro-esophageal reflux disease without esophagitis; F41.9 Anxiety disorder, unspecified; L70.0 Acne vulgaris; N06.4 Isolated proteinuria with diffuse endocapillary proliferative glomerulonephritis
CPT/HCPCS: 36415; 80053; 80074; 81003; 81015; 85025; 85651; 86140; 99285-25; G0378; J7030

== ENCOUNTER 2019-03-08 18:04 | Emergency (ER) | payer BC ==
[2019-03-08 18:20] VITALS: BP 130/77; PULSE 97; TEMP 98.2; BMI 24.9
[2019-03-08] MEDS ORDERED: METOCLOPRAMIDE HCL INJECTION 10 MG/2 ML VIAL IVPB ONE (18:42)
[2019-03-08] MEDS ORDERED: SODIUM CHLORIDE 0.9% 500 ML INFUS.BAG IV ONE (18:42)
[2019-03-08] MEDS ORDERED: FAMOTIDINE 20 MG/50 ML IVPB 20 MG/50 ML MG IVPB ONE ×2 (18:49→19:16)
[2019-03-08] MEDS ORDERED: SODIUM CHLORIDE 0.9% 1000 ML INFUS.BAG IV ONE (18:49)
--- NOTE | 2019-03-08 19:14 | PDOC ---
Documentation entered by Kurt Lobo SCRIBE, acting as scribe for Tammy Hoffmann DO. Tammy Hoffmann DO: This documentation has been prepared by the Yamil santo Xhesika, SCRIBE, under my direction and personally reviewed by me in its entirety. I confirm that the documentation accurately reflects all work, treatment, procedures, and medical decision making performed by me. Attending Attestation - Resident Resident Name: ParadiseKlaus - ED Attending Attestation I have performed the following: I have examined & evaluated the patient, The case was reviewed & discussed with the resident, I agree w/resident's findings & plan, Exceptions are as noted - HPI HPI: 03/08/19 19:05 The patient is a 58 year old female, with a significant PMH of anxiety, migraines, HLD, and fibromyalgia who presents to the emergency department with a couple days of nausea, vomiting, and 4 episodes of nbnb diarrhea. The patient states she has been weaning down her cymbalta this week (now taking 30mg po QOD ) and does not recall taking it today or yesterday. The patient states she was at a BBQ yesterday and she tried eating, however, she was unable to tolerate any PO. The patient states she endorses generalized weakness and feels lightheaded. The patient denies chest pain, shortness of breath, headache. Denies fever, chills, and constipation. Denies dysuria, frequency, urgency and hematuria. Allergies: shellfish, Penicillins, aspirin, avocado, clindamycin, codeine, doxycycline, Fish, latex, nickel, oxycodone Social history: Lives with . No smoking. No alcohol. No illicit drugs. Surgical history: TMJ PMD: Dr. Boby Weems - Physicial Exam PE: 03/08/19 19:09 GENERAL: Awake, alert, and fully oriented, in no acute distress. (+) exhausted. HEAD: No signs of trauma EYES: PERRLA, EOMI, sclera anicteric, conjunctiva clear ENT: Auricles normal inspection, hearing grossly normal, nares patent, oropharynx clear without exudates. (+) dry mucous membranes. NECK: Normal ROM, supple, no lymphadenopathy, JVD, or masses LUNGS: (+) tachycardic. Breath sounds equal, clear to auscultation bilaterally. No wheezes, and no crackles HEART: Regular rate and rhythm, normal S1 and S2, no murmurs, rubs or gallops ABDOMEN: Soft, nontender, normoactive bowel sounds. No guarding, no rebound. No masses EXTREMITIES: Normal range of motion, no edema. No clubbing or cyanosis. No cords, erythema, or tenderness NEUROLOGICAL: Cranial nerves II through XII grossly intact. Normal speech, normal gait SKIN: Warm, Dry, normal turgor, no rashes or lesions noted. - Medical Decision Making 03/08/19 18:49 I, Dr. Tammy Hoffmann, DO, attest that this document has been prepared under my direction and personally reviewed by me in its entirety. I further attest, that it accurately reflects all work, treatment, procedures and medical decision -making performed by me. 03/08/19 18:50 a/p: 58yo female with n/v/d that started today -states she has been weaning down her cymbalta this week - 30mg po QOD -states she is unsure if she took the dose yesterday -was at a bb yesterday, ate the same food and is not sick -pt states n/v/d today - unable to tolerate po, c/o lip tingling - suspect electrolyte abnl -pt appears dehydrated -dry heaves during exam -will send labs, ekg, ivf hydration/reglan/pepcid -abd is soft, nt -will monitor and reassess 03/08/19 19:14 pt signed out pending labs and re-eval to the oncoming ED
[2019-03-08] MEDS ORDERED: METOCLOPRAMIDE HCL INJECTION 10 MG/2 ML VIAL ONE (19:16)
--- NOTE | 2019-03-08 19:32 | PDOC ---
History of Present Illness - General Chief Complaint: Nausea/Vomiting Stated Complaint: NAUSEA,VOMITING ,DIARRHEA Time Seen by Provider: 03/08/19 18:15 History Source: Patient, Spouse Exam Limitations: No Limitations - History of Present Illness Initial Comments: 03/08/19 19:30 58 year old female with PMH of anxiety, fibromyalgia, migraine, asthma, and a large number of reported allergies, presenting with one day of nausea/vomiting/ diarrhea. Reports being on a scheduled Cymbalta weaning regimen under a Dr. Hernandez, is now on 30mg per day. Does not recall taking medication yesterday or today, and is concerned that her current symptoms are related to this. Was at a holiday barbecue yesterday, denies abnormal food being eaten as a cause of food poisoning, no other sick contacts. Loss of appetite 2/2 nausea, trialed some applesauce before arrival and vomited, trialed simethicone and vomited. 4x loose stools today. Denies prior episodes of this presentation. Complains of generalized weakness, nausea, vomiting. No headaches, vertigo, SOB , cough, chest pain. No abd pain, no urinary sx. Denies alcohol/tobacco/drug use. Past History - Past Medical History Allergies/Adverse Reactions: Allergies Allergy/AdvReac Type Severity Reaction Status Date / Time Penicillins Allergy Severe Difficulty Verified 03/08/19 18:09 Breathing shellfish derived Allergy Severe Difficulty Verified 03/08/19 18:09 Breathing adalimumab [From Humira] Allergy Intermediate Rash Verified 03/08/19 18:20 aspirin Allergy Intermediate Verified 03/08/19 18:09 avocado Allergy Intermediate Verified 03/08/19 18:09 clindamycin Allergy Intermediate Rash Verified 03/08/19 18:09 codeine Allergy Intermediate Rash Verified 03/08/19 18:09 doxycycline Allergy Intermediate Rash Verified 03/08/19 18:09 Fish Containing Products Allergy Intermediate Verified 03/08/19 18:09 latex Allergy Intermediate Rash Verified 03/08/19 18:09 mustard Allergy Intermediate Verified 03/08/19 18:09 nickel Allergy Intermediate Verified 03/08/19 18:09 oxycodone Allergy Intermediate Verified 03/08/19 18:09 potato Allergy Intermediate Verified 03/08/19 18:09 sesame seed Allergy Intermediate Verified 03/08/19 18:09 all seeds and nuts Allergy Intermediate Uncoded 03/08/19 18:09 fresh onion & garlic Allergy Intermediate Uncoded 03/08/19 18:09 fruits and vegetables Allergy Intermediate Uncoded 03/08/19 18:09 pollen Allergy Intermediate Uncoded 03/08/19 18:09 Home Medications: Ambulatory Orders Spironolactone 50 mg PO BID 10/08/16 Rosuvastatin Calcium [Crestor] 10 mg PO HS 05/10/18 Cetirizine HCl [Zyrtec -] 10 mg PO DAILY 07/17/18 Duloxetine HCl [Cymbalta] 30 mg PO ASDIR 03/08/19 Ondansetron [Ondansetron Odt] 8 mg PO QID PRN #24 tab.rapdis 03/08/19 Anemia: No Asthma: Yes Cancer: No Cardiac Disorders: Yes (MVP) CVA: No COPD: No CHF: No DVT: No Dementia: No Diabetes: No GI Disorders: Yes (SPASTIC COLON, GERD) Disorders: No HTN: Yes Hypercholesterolemia: Yes Liver Disease: No Psychiatric Problems: Yes (ANXIETY) Seizures: No Thyroid Disease: No Other medical history: FIBROMYAGLIA - Surgical History Abdominal Surgery: No Appendectomy: No Cardiac Surgery: No Cholecystectomy: No Lung Surgery: No Neurologic Surgery: No Orthopedic Surgery: Yes (Arthroscopy Meniscus repair) - Immunization History Immunization Up to Date: Yes - Suicide/Smoking/Psychosocial Hx Smoking Status: No Smoking History: Never smoked Have you smoked in the past 12 months: No Number of Cigarettes Smoked Daily: 0 If you are a former smoker, when did you quit?: 1989 Cigars Per Day: 0 Information on smoking cessation initiated: No Hx Alcohol Use: No Drug/Substance Use Hx: No Substance Use Type: None Hx Substance Use Treatment: No Review of Systems - Review of Systems Able to Perform ROS?: Yes Is the patient limited Syrian proficient: No Constitutional: Yes: See HPI, Loss of Appetite, Weakness. No: Diaphoresis, Fever HEENTM: Yes: Other. No: Blurred Vision, Recent change in vision, Hearing Loss, Throat Pain, Difficulty Swallowing Respiratory: No: Cough, Shortness of Breath Cardiac (ROS): Yes: Lightheadedness. No: Chest Pain (history of non-cardiac chest pain from anxiety, denies feeling this at this time), Palpitations, Syncope ABD/GI: Yes: Diarrhea, Nausea, Poor Appetite, Vomiting. No: Constipated : No: Burning, Dysuria, Hematuria, Pain, Urgency Musculoskeletal: Yes: Back Pain, Joint Pain, Neck Pain, Joint Stiffness Integumentary: No: Erythema, Pruritus, Rash Neurological: Yes: Weakness. No: Headache, Unsteady Gait Endocrine: No: Excessive Sweating, Intolerance to Heat, Increased Hunger *Physical Exam - Vital Signs Last Vital Signs Temp Pulse Resp BP Pulse Ox 98.2 F 97 H 18 130/77 100 03/08/19 18:07 03/08/19 18:07 03/08/19 18:07 03/08/19 18:07 03/08/19 18:07 - Physical Exam General Appearance: Yes: Nourished, Apparent Distress, Moderate Distress HEENT: positive: EOMI, ELLEN, Normal ENT Inspection, Normal Voice, Symmetrical, Pharynx Normal. negative: Scleral Icterus (R), Scleral Icterus (L), Rhinorrhea , Sinus Tenderness Neck: positive: Trachea midline, Supple, Other. negative: Tender Respiratory/Chest: positive: Lungs Clear, Normal Breath Sounds. negative: Chest Tender, Respiratory Distress, Crackles, Rales, Rhonchi, Stridor, Wheezing Cardiovascular: positive: Regular Rhythm, Regular Rate. negative: Edema, Gallop /S3, Gallop/S4 Gastrointestinal/Abdominal: positive: Normal Bowel Sounds, Soft. negative: Tender, Organomegaly, Pulsatile Mass, Guarding, Rebound Musculoskeletal: positive: Normal Inspection Extremity: positive: Normal Capillary Refill, Normal Inspection, Normal Range of Motion, Other. negative: Tender Integumentary: positive: Normal Color, Dry, Warm. negative: Rash, Swelling Neurologic: positive: Fully Oriented, Alert, Normal Mood/Affect, Normal Response ED Treatment Course - LABORATORY CBC & Chemistry Diagram: 03/08/19 19:50 03/08/19 19:50 - Medications Given in the ED: ED Medications Discontinued Medications Generic Name Dose Route Start Last Admin Trade Name Freq PRN Reason Stop Dose Admin Famotidine/Sodium Chloride 20 mg in 50 mls @ 100 mls/hr 03/08/19 18:49 19:22 Pepcid 20 Mg Premixed Ivpb - IVPB 03/08/19 19:18 100 mls/hr ONCE ONE Administration Metoclopramide HCl 10 mg 03/08/19 18:42 03/08/19 19:17 Reglan Injection - IVPB 03/08/19 18:43 10 mg ONCE ONE Administration Sodium Chloride 1,000 ml 03/08/19 18:42 03/08/19 19:15 Normal Saline - IV 03/08/19 18:43 1,000 ml ONCE ONE Administration Medical Decision Making - Medical Decision Making 03/08/19 19:47 58F with PMH anxiety, fibromyalgia, HLD, migraines, and multiple allergies presents with nausea/vomiting/diarrhea. Given patient with VS WNL and this presentation, ddx includes acute astroenteritis vs pancreatitis vs gastritis. Considered that symptoms are side effect of Cymbalta wean, unlikely given rapid appearance of symptoms and more likely GI complaint is cause. Cardiac etiology vs. dehydration a possibility given weakness but less unlikely. Will obtain CMP, CBC, UA, ECG, cardiac profile for evaluation of lytes, infection status, and cardiac status. Will give 2L NS bolus, with famotidine and metaclopramide for nausea. Will continue to monitor for improvement of symptoms. 03/08/19 19:54 ECG read, NSR. Re-evaluation patient reports feeling better with reglan and IVF. Labs all WNL. Current symptoms likely 2/2 dehydration vs. food poisoning vs. anxiety over missed medication. Will discharge home with f/u instructions and Zofran Rx. *DC/Admit/Observation/Transfer Diagnosis at time of Disposition: Dehydration Nausea and vomiting Qualifiers: Vomiting type: unspecified Vomiting Intractability: non-intractable Qualified Code(s): R11.2 - Nausea with vomiting, unspecified - Discharge Dispostion Disposition: HOME Condition at time of disposition: Stable - Prescriptions Prescriptions: Ondansetron [Ondansetron Odt] 8 mg PO QID PRN #24 tab.rapdis PRN Reason: Nausea - Referrals Referrals: Boby Weems MD [Primary Care Provider] - - Patient Instructions Printed Discharge Instructions: DI for Nausea -- Adult, DI for Vomiting -- Adult, DI for Poor Appetite Additional Instructions: For the nausea take Zofran 1 tablet as often as every 4-6 hours if needed. Try to stay hydrated with clear liquids as long as you're feeling any nausea. Taper your Cymbalta as discussed. Return to the emergency department immediately with ANY new, persistent or worsening symptoms. Continue any medications as previously prescribed by your physician. You should follow up with your primary doctor as soon as possible regarding today's emergency department visit. . Please make sure your doctor reviews the results of your emergency evaluation. Thank you for coming to the Emergency Department today for your care. It was a pleasure to see you today. Please note that your evaluation is INCOMPLETE until you follow-up with your doctor. - Post Discharge Activity
--- NOTE | 2019-03-08 19:47 | PDOC ---
*Physical Exam - Vital Signs Last Vital Signs Temp Pulse Resp BP Pulse Ox 98.2 F 97 H 18 130/77 100 03/08/19 18:07 03/08/19 18:07 03/08/19 18:07 03/08/19 18:07 03/08/19 18:07 ED Treatment Course - LABORATORY CBC & Chemistry Diagram: 03/08/19 19:50 03/08/19 19:50 - Medications Given in the ED: ED Medications Discontinued Medications Generic Name Dose Route Start Last Admin Trade Name Eamon PRN Reason Stop Dose Admin Famotidine/Sodium Chloride 20 mg in 50 mls @ 100 mls/hr 03/08/19 18:49 19:22 Pepcid 20 Mg Premixed Ivpb - IVPB 03/08/19 19:18 100 mls/hr ONCE ONE Administration Metoclopramide HCl 10 mg 03/08/19 18:42 03/08/19 19:17 Reglan Injection - IVPB 03/08/19 18:43 10 mg ONCE ONE Administration Sodium Chloride 1,000 ml 03/08/19 18:42 03/08/19 19:15 Normal Saline - IV 03/08/19 18:43 1,000 ml ONCE ONE Administration Progress Note - Progress Note Progress Note: Care of this patient was transferred to md from Dr. Hoffmann at 1900 hrs. Patient is currently being evaluated by the EM resident. Patient is receiving fluids, antiemetics and labs are still pending. Reevaluation 2144: It is on her second liter of fluid feeling better however not completely back to her baseline. Had a discussion with patient regarding Cymbalta and whether or not this could be Cymbalta withdrawal. This is a possibility so discussed a longer slow taper with her which she is going to try. The other possibility is that is his GI virus and the symptoms will resolve within 48 hours. Initially EKG was abnormal and that had some nonspecific ST-T wave changes and in irregular rhythm. Post-hydration EKG was repeated and EKG was normal sinus rhythm with a rate of 64 normal intervals no acute ST-T wave changes normal EKG Workup was otherwise unremarkable with a normal white count and no left shift and normal chemistries Patient discharged will follow-up with her primary care doctor. Answers patient's questions and give her her discharge instructions. *DC/Admit/Observation/Transfer Diagnosis at time of Disposition: Dehydration Nausea and vomiting Qualifiers: Vomiting type: unspecified Vomiting Intractability: non-intractable Qualified Code(s): R11.2 - Nausea with vomiting, unspecified - Discharge Dispostion Disposition: HOME Condition at time of disposition: Stable Decision to Admit order: No - Prescriptions Prescriptions: Ondansetron [Ondansetron Odt] 8 mg PO QID PRN #24 tab.rapdis PRN Reason: Nausea - Referrals Referrals: Boby Weems MD [Primary Care Provider] - - Patient Instructions Additional Instructions: For the nausea take Zofran 1 tablet as often as every 4-6 hours if needed. Try to stay hydrated with clear liquids as long as you're feeling any nausea. Taper your Cymbalta as discussed. Return to the emergency department immediately with ANY new, persistent or worsening symptoms. Continue any medications as previously prescribed by your physician. You should follow up with your primary doctor as soon as possible regarding today's emergency department visit. . Please make sure your doctor reviews the results of your emergency evaluation. Thank you for coming to the Emergency Department today for your care. It was a pleasure to see you today. Please note that your evaluation is INCOMPLETE until you follow-up with your doctor. - Post Discharge Activity
[2019-03-08 20:14] LABS: BASO % 0.4 % (0-2.0); EOS % 3.1 % (0-4.5); HEMOGLOBIN 13.7 GM/dl (10.7-15.3); MCH 30.2 pg (25.7-33.7); MCHC 33.4 g/dl (32.0-36.0); MEAN CELL VOLUME 90.5 fl (80-96); MEAN PLT VOLUME 7.5 fl (7.5-11.1); MONO % 5.3 % (3.8-10.2); NEUT % 67.2 % (42.8-82.8); PLATELET COUNT 303 K/MM3 (134-434); RBC 4.53 M/mm3 (3.60-5.2); WHITE BLOOD COUNT 6.1 K/mm3 (4.0-10.8)
[2019-03-08 20:27] LABS: ALBUMIN 4.6 g/dl (3.4-5.0); BILIRUBIN,TOTAL 0.6 mg/dl (0.2-1); CALCIUM 9.7 mg/dl (8.5-10); CREATININE 0.6 mg/dl (0.55-1.3); TOT PROT 7.8 g/dl (6.4-8.2)
--- NOTE | 2019-03-10 13:56 | EKG ---
Test Reason : Blood Pressure : / mmHG Vent. Rate : 067 BPM Atrial Rate : 067 BPM P-R Int : 172 ms QRS Dur : 068 ms QT Int : 384 ms P-R-T Axes : 056 074 055 degrees QTc Int : 405 ms NORMAL SINUS RHYTHM WITH SINUS ARRHYTHMIA LEFT ATRIAL ENLARGEMENT BORDERLINE ECG Confirmed by MD SADE, CHASE ([id number]) on 03/10/2019 1:56:23 PM Referred By: MD LEE Confirmed By:CHASE STUART MD
--- NOTE | 2019-04-30 09:39 | EKG ---
Test Reason : Blood Pressure : / mmHG Vent. Rate : 064 BPM Atrial Rate : 064 BPM P-R Int : 182 ms QRS Dur : 072 ms QT Int : 420 ms P-R-T Axes : 065 071 044 degrees QTc Int : 433 ms NORMAL SINUS RHYTHM WITH SINUS ARRHYTHMIA POSSIBLE LEFT ATRIAL ENLARGEMENT BORDERLINE ECG WHEN COMPARED WITH ECG OF 08-MAR-2019 19:16, NO SIGNIFICANT CHANGE WAS FOUND Confirmed by Harjit Boyce MD ([id number]) on 04/30/2019 9:38:48 AM Referred By: MD JOHNSON Confirmed By:Harjit Boyce MD
== END 2019-03-08 21:59 | disposition home or self-care (01) ==
LOC: FER 18:04
PROC: 3E0337Z Introduction of Electrolytic and Water Balance Substance into Peripheral Vein, Percutaneous Approach (ICD-10-PCS; principal; 2019-03-08)
PROC: 3E033GC Introduction of Other Therapeutic Substance into Peripheral Vein, Percutaneous Approach (ICD-10-PCS; 2019-03-08)
DX: E86.0 Dehydration (principal); R11.2 Nausea with vomiting, unspecified; F41.9 Anxiety disorder, unspecified; E78.5 Hyperlipidemia, unspecified
CPT/HCPCS: 36415; 80053; 81003; 82550; 83690; 84484; 85025; 93005; 93010; 99283-25; J7030

== ENCOUNTER 2019-07-19 18:04 | Emergency (ER) | payer BC ==
[2019-07-19 18:54] VITALS: BP 125/79; PULSE 88; TEMP 98.9; BMI 24.7
--- NOTE | 2019-07-20 00:30 | PDOC ---
Documentation entered by Eloisa Patel SCRIBE, acting as scribe for Radha Colunga MD. Radha Colunga MD: This documentation has been prepared by the harleyeJorge Aiswarya, SCRIBE, under my direction and personally reviewed by me in its entirety. I confirm that the documentation accurately reflects all work, treatment, procedures, and medical decision making performed by me. History of Present Illness - General Chief Complaint: Pain Stated Complaint: LEFT CALF PAIN Time Seen by Provider: 07/19/19 19:15 History Source: Patient Exam Limitations: No Limitations - History of Present Illness Initial Comments: 07/19/19 21:17 The patient is a 59 year old female, with a significant PMH of asthma, spastic colon, GERD, HTN, HLD,autoimmune syndrome of unclear etiology and anxiety who presents to the emergency department with left lower leg pain that began several days ago. Pain was initially mild. She was at [facility] today when she noted that the pain was more severe in the medial, proximal left lower leg and that it radiated to the medial distal thigh. Patient states she was unable to bear weight on left leg without pain and came into the ER for further evaluation. She also mentions she noticed a painful swelling on her left forearm for the last week . No history of trauma or overuse. The patient denies chest pain, shortness of breath, headache and dizziness. Denies fever, chills, nausea, vomit, diarrhea and constipation. Denies dysuria, frequency, urgency and hematuria. Allergies: penicillin, shellfish Past surgical history: arthroscopy meniscus Social history: None reported PCP: Boby Weems Past History - Past Medical History Allergies/Adverse Reactions: Allergies Allergy/AdvReac Type Severity Reaction Status Date / Time Penicillins Allergy Severe Difficulty Verified 03/08/19 18:09 Breathing shellfish derived Allergy Severe Difficulty Verified 03/08/19 18:09 Breathing adalimumab [From Humira] Allergy Intermediate Rash Verified 03/08/19 18:20 aspirin Allergy Intermediate Verified 03/08/19 18:09 avocado Allergy Intermediate Verified 03/08/19 18:09 clindamycin Allergy Intermediate Rash Verified 03/08/19 18:09 codeine Allergy Intermediate Rash Verified 03/08/19 18:09 doxycycline Allergy Intermediate Rash Verified 03/08/19 18:09 Fish Containing Products Allergy Intermediate Verified 03/08/19 18:09 latex Allergy Intermediate Rash Verified 03/08/19 18:09 mustard Allergy Intermediate Verified 03/08/19 18:09 nickel Allergy Intermediate Verified 03/08/19 18:09 oxycodone Allergy Intermediate Verified 03/08/19 18:09 potato Allergy Intermediate Verified 03/08/19 18:09 sesame seed Allergy Intermediate Verified 03/08/19 18:09 all seeds and nuts Allergy Intermediate Uncoded 03/08/19 18:09 fresh onion & garlic Allergy Intermediate Uncoded 03/08/19 18:09 fruits and vegetables Allergy Intermediate Uncoded 03/08/19 18:09 pollen Allergy Intermediate Uncoded 03/08/19 18:09 Home Medications: Ambulatory Orders Spironolactone 50 mg PO BID 10/08/16 Rosuvastatin Calcium [Crestor] 10 mg PO HS 05/10/18 Cetirizine HCl [Zyrtec -] 10 mg PO DAILY PRN 07/17/18 Sertraline HCl 50 mg PO DAILY 07/19/19 Anemia: No Asthma: Yes Cancer: No Cardiac Disorders: Yes (MVP) CVA: No COPD: No CHF: No DVT: No Dementia: No Diabetes: No GI Disorders: Yes (SPASTIC COLON, GERD) Disorders: No HTN: Yes Hypercholesterolemia: Yes Liver Disease: No Psychiatric Problems: Yes (ANXIETY) Seizures: No Thyroid Disease: No - Surgical History Abdominal Surgery: No Appendectomy: No Cardiac Surgery: No Cholecystectomy: No Lung Surgery: No Neurologic Surgery: No Orthopedic Surgery: Yes (Arthroscopy Meniscus repair) - Immunization History Immunization Up to Date: Yes - Psycho Social/Smoking Cessation Hx Smoking Status: No Smoking History: Never smoked Have you smoked in the past 12 months: No Number of Cigarettes Smoked Daily: 0 If you are a former smoker, when did you quit?: 1989 Cigars Per Day: 0 Hx Alcohol Use: No Drug/Substance Use Hx: No Substance Use Type: None Hx Substance Use Treatment: No Review of Systems - Review of Systems Able to Perform ROS?: Yes Comments:: 07/19/19 21:18 GENERAL/CONSTITUTIONAL: No fever or chills. No weakness. HEAD, EYES, EARS, NOSE AND THROAT: No change in vision. No ear pain or discharge. No sore throat. CARDIOVASCULAR: No chest pain or shortness of breath. RESPIRATORY: No cough, wheezing, or hemoptysis. GASTROINTESTINAL: No nausea, vomiting, diarrhea or constipation. GENITOURINARY: No dysuria, frequency, or change in urination. MUSCULOSKELETAL: +left leg pain. No joint or muscle swelling or pain. No neck or back pain. SKIN: No rash NEUROLOGIC: No headache, vertigo, loss of consciousness, or change in strength/ sensation. ENDOCRINE: No increased thirst. No abnormal weight change. HEMATOLOGIC/LYMPHATIC: No anemia, easy bleeding, or history of blood clots. ALLERGIC/IMMUNOLOGIC: No hives or skin allergy. *Physical Exam - Vital Signs Last Vital Signs Temp Pulse Resp BP Pulse Ox 98.9 F 88 16 125/79 97 07/19/19 18:08 07/19/19 18:08 07/19/19 18:08 07/19/19 18:08 07/19/19 18:08 - Physical Exam Comments: 07/19/19 21:18 GENERAL: Awake, alert, and fully oriented, in no acute distress HEAD: No signs of trauma EYES: PERRLA, EOMI, sclera anicteric, conjunctiva clear EXTREMITIES:+mild edema tenderness and slightly edematous on palpation of the distal mid left forearm without ecchymosis, erythema, or increased warmth. Moderate tenderness to the left lower extremity. No edema, ecchymosis or erythema of the proximal calf medial to the distal thigh. No palpable cords. No lymphangitic streaking. NEUROLOGICAL: Cranial nerves II through XII grossly intact. Normal speech, normal gait SKIN: Warm, Dry, normal turgor, no rashes or lesions noted ED Treatment Course - RADIOLOGY Radiology Studies Ordered: Category Date Time Status DUPLEX VASCUL US-1 ARM [US] Stat Ultrasound 07/19/19 19:29 Completed DUPLEX VASCUL US-1 LEG [US] Stat Ultrasound 07/19/19 19:21 Completed Medical Decision Making - Medical Decision Making As noted above, this 59-year-old woman with a history of autoimmune symptoms of unclear etiology, currently being treated by a patient placement coordinator as well as her PMD , Dr. Weems, presents with several days of left lower extremity discomfort: Initial discomfort was in the medial proximal lower leg. Today, the pain became more severe and radiated to the distal portion of the medial thigh. No other associated symptoms. No previous history of thromboembolic phenomenon and she has no significant risk factors for thromboembolic disease. Physical exam as noted above. Because of patient's previous rheumatologic symptoms, apparently without specific diagnosis yet, Doppler duplex studies of both left upper extremity and left lower extremity performed to evaluate for DVT. Dr. Sanders of radiology staff interpreted studies: No evidence of DVT in either extremity. There is mention of slow flow in the veins without evidence of structural abnormalities. No mention of superficial thrombophlebitis present either. Although no evidence of superficial thrombophlebitis seen on imaging studies or on clinical exam, the patient should elevate and apply warm compresses to the areas of discomfort. If she has persistent severe pain or develops any sign of acute inflammation/infection, she should return to the ER. She should plan on following up with her PMD, Dr. Weems within the next 3 to 4 days. She has follow -up scheduled with her patient placement coordinator within the next few weeks. Discharge - Discharge Information Problems reviewed: Yes Clinical Impression/Diagnosis: Left leg pain, Left forearm pain Condition: Stable Disposition: HOME - Follow up/Referral Referrals: Boby Weems MD [Primary Care Provider] - 3 days - Patient Discharge Instructions Patient Printed Discharge Instructions: DI for Leg Pain Additional Instructions: Local warmth/elevation of areas of pain as discussed Can take Advil twice a day as recommended by your patient placement coordinator Return to ER if painful areas become swollen/warm/red or you develop fever Follow-up with Dr. Weems within the next 3 to 4 days Follow-up with your patient placement coordinator as scheduled - Post Discharge Activity
== END 2019-07-19 21:09 | disposition home or self-care (01) ==
LOC: FER 18:04
DX: M79.605 Pain in left leg (principal); M79.632 Pain in left forearm; Z87.891 Personal history of nicotine dependence; F41.9 Anxiety disorder, unspecified; I10 Essential (primary) hypertension; I34.1 Nonrheumatic mitral (valve) prolapse; J45.909 Unspecified asthma, uncomplicated; K21.9 Gastro-esophageal reflux disease without esophagitis; E78.00 Pure hypercholesterolemia, unspecified; Z88.0 Allergy status to penicillin; Z91.013 Allergy to seafood; Z88.8 Allergy status to other drugs, medicaments and biological substances; Z91.018 Allergy to other foods
CPT/HCPCS: 93971; 93971-TC; 99282-25

== ENCOUNTER 2020-09-24 20:48 | Emergency (ER) | payer BC ==
[2020-09-24 21:11] VITALS: BP 124/76; PULSE 85; TEMP 99.1; BMI 24.8
[2020-09-24] MEDS ORDERED: ACETAMINOPHEN 500 MG TABLET (FP) PO ONE (21:35)
[2020-09-24] MEDS ORDERED: ACETAMINOPHEN 500 MG TABLET (FP) ONE (21:36)
[2020-09-24] MEDS ORDERED: ONDANSETRON *ODT* 4 MG TABLET SL ONE (21:38)
[2020-09-24] MEDS ORDERED: ONDANSETRON *ODT* 4 MG TABLET ONE (21:39)
== END 2020-09-24 22:04 | disposition home or self-care (01) ==
LOC: FER 20:48
DX: S06.0X0A Concussion without loss of consciousness, initial encounter (principal); S14.0XXA Concussion and edema of cervical spinal cord, initial encounter
CPT/HCPCS: 70450-TC; 99284-25; Q0162

== ENCOUNTER 2021-05-23 21:24 | Emergency (ER) | payer BC ==
[2021-05-23 21:33] VITALS: BP 137/62; PULSE 80; TEMP 98.9; BMI 25.7
== END 2021-05-23 22:18 | disposition home or self-care (01) ==
LOC: FER 21:24
DX: T63.441A Toxic effect of venom of bees, accidental (unintentional), initial encounter (principal)
CPT/HCPCS: 99281-25

== ENCOUNTER 2022-03-08 05:05 | Emergency (ER) | payer BC ==
[2022-03-08 05:15] VITALS: BP 107/66; PULSE 85; TEMP 98.7; BMI 26.1
[2022-03-08] MEDS ORDERED: ONDANSETRON *ODT* 4 MG TABLET SL ONE (05:18)
[2022-03-08] MEDS ORDERED: MECLIZINE HCL 25 MG TABLET (FP) PO ONE (05:18)
[2022-03-08] MEDS ORDERED: ONDANSETRON *ODT* 4 MG TABLET ONE (05:19)
[2022-03-08] MEDS ORDERED: MECLIZINE HCL 25 MG TABLET (FP) ONE (05:19)
[2022-03-08] MEDS ORDERED: LORazepam 2 MG/ML SDV VIAL IVPUSH ONE (07:18)
[2022-03-08 07:57] LABS: HEMATOCRIT 43.2 % (32.4-45.2); HEMOGLOBIN 14.3 G/dL (10.7-15.3); MCHC 33.2 g/dl (32.0-36.0); MEAN CELL VOLUME 90.3 fl (80-96); MEAN PLT VOLUME 7.1 fl (7.5-11.1); PLATELET COUNT 308.8 10^3/uL (134-434); RBC 4.78 10^6/uL (3.60-5.2); RDW 13.7 % (11.6-15.6); WHITE BLOOD COUNT 9.3 10^3/uL (4.0-10.8)
[2022-03-08 08:06] LABS: ALBUMIN 4.6 g/dl (3.4-5.0); BILIRUBIN,TOTAL 0.4 mg/dl (0.2-1); CALCIUM 10.2 mg/dl (8.5-10); CREATININE 0.7 mg/dl (0.55-1.3); TOT PROT 8.1 g/dl (6.4-8.2)
== END 2022-03-08 11:33 | disposition home or self-care (01) ==
LOC: FER 05:05
PROC: 3E033NZ Introduction of Analgesics, Hypnotics, Sedatives into Peripheral Vein, Percutaneous Approach (ICD-10-PCS; principal; 2022-03-08)
DX: R55 Syncope and collapse (principal); M54.2 Cervicalgia
CPT/HCPCS: 0241U-QW; 36415; 70450-TC; 80053; 85027; 99284-25; Q0162

== ENCOUNTER 2023-03-31 13:26 | Emergency (ER) | payer BC ==
[2023-03-31 13:43] VITALS: BP 125/79; PULSE 87; RESP 18; BMI 27.4
[2023-03-31] MEDS ORDERED: KETOROLAC TROMETHAMINE 30 MG/1 ML VIAL IM ONE (14:01)
[2023-03-31] MEDS ORDERED: KETOROLAC TROMETHAMINE 30 MG/1 ML VIAL ONE (14:08)
[2023-03-31 14:33] VITALS: TEMP 97.8
[2023-03-31] MEDS ORDERED: LIDOCAINE 5% TOPICAL PATCH TP ONE ×2 (15:00→16:20)
[2023-03-31] MEDS ORDERED: CYCLOBENZAPRINE HCL 10 MG TABLET (FP) PO ONE (15:00)
[2023-03-31] MEDS ORDERED: ACETAMINOPHEN 500 MG TABLET (FP) PO ONE (15:00)
[2023-03-31] MEDS ORDERED: LIDOCAINE 5% TOPICAL PATCH ONE ×2 (15:11→16:21)
[2023-03-31] MEDS ORDERED: ACETAMINOPHEN 500 MG TABLET (FP) ONE (15:11)
[2023-03-31] MEDS ORDERED: CYCLOBENZAPRINE HCL 5 MG TABLET ONE (15:11)
[2023-03-31] MEDS ORDERED: LIDOCAINE PATCH REMOVAL MC SCH ×2 (22:00)
== END 2023-03-31 16:35 | disposition home or self-care (01) ==
LOC: FER 13:26
PROC: 3E023GC Introduction of Other Therapeutic Substance into Muscle, Percutaneous Approach (ICD-10-PCS; principal; 2023-03-31)
DX: R07.89 Other chest pain (principal)
CPT/HCPCS: 71046-TC-FY; 99284-25

== ENCOUNTER 2023-06-04 20:53 | Emergency (ER) | payer BC ==
[2023-06-04 22:13] LABS: HEMATOCRIT 38.9 % (32.4-45.2); HEMOGLOBIN 12.8 G/dL (10.7-15.3); MCH 29.8 pg (25.7-33.7); MCHC 32.9 g/dl (32.0-36.0); MEAN CELL VOLUME 90.4 fl (80-96); MEAN PLT VOLUME 7.2 fl (7.5-11.1); PLATELET COUNT 287.2 10^3/uL (134-434); RDW 13.9 % (11.6-15.6); WHITE BLOOD COUNT 7.6 10^3/uL (4.0-10.8)
[2023-06-04 22:26] LABS: INR 1.1 (0.83-1.09); PROTHROMBIN TIME (PATIENT) 12.8 SEC (9.7-13.0)
[2023-06-04 22:37] LABS: ALBUMIN 4.4 g/dl (3.4-5.0); BILIRUBIN,TOTAL 0.4 mg/dl (0.2-1); BLOOD UREA NITROGEN 17.8 mg/dl (7-18); CALCIUM 9.5 mg/dl (8.5-10.1); CREATININE 0.8 mg/dl (0.6-1.3); SGOT/AST 23.3 U/L (15-37); SGPT/ALT 19.8 U/L (7-52); TOT PROT 6.9 g/dl (6.4-8.2)
[2023-06-04 23:16] VITALS: BP 138/75; PULSE 98; RESP 17; TEMP 98.5; BMI 27.8
[2023-06-04] MEDS ORDERED: LACTULOSE 20 GM/30 ML UDC (FOR ORAL USE ONLY) PO ONE (23:43)
[2023-06-04] MEDS ORDERED: LACTULOSE 20 GM/30 ML UDC (FOR ORAL USE ONLY) ONE (23:46)
== END 2023-06-05 01:00 | disposition home or self-care (01) ==
LOC: FER 20:53
DX: R07.81 Pleurodynia (principal); K59.00 Constipation, unspecified; R14.1 Gas pain; Z20.822 Contact with and (suspected) exposure to COVID-19
CPT/HCPCS: 36415; 71046-TC-FY; 74176-TC; 80053; 83690; 84484; 85025; 85610; 87635; 93005; 99285-25

== ENCOUNTER 2024-01-05 04:30 | Day surgery (SDC) | payer BC ==
[2024-01-01 12:53] VITALS: BMI 26.6
[2024-01-05 11:14] VITALS: TEMP 97.8
[2024-01-05 11:49] VITALS: BP 109/65; PULSE 69; RESP 18
== END 2024-01-05 12:04 | disposition home or self-care (01) ==
LOC: JASU-ENDO 04:30
PROVIDERS: ATTEND Internal Medicine Gastroenterology
PROC: 0DJD8ZZ Inspection of Lower Intestinal Tract, Via Natural or Artificial Opening Endoscopic (ICD-10-PCS; principal; 2024-01-05 11:00)
DX: Z12.11 Encounter for screening for malignant neoplasm of colon (principal); K57.30 Diverticulosis of large intestine without perforation or abscess without bleeding; K64.8 Other hemorrhoids; K62.89 Other specified diseases of anus and rectum

== ENCOUNTER 2024-02-09 17:06 | Emergency (ER) | payer BC ==
[2024-02-09 17:18] VITALS: BP 116/77; PULSE 90; RESP 16; TEMP 97.9; BMI 26.1
[2024-02-09] MEDS ORDERED: ACETAMINOPHEN 500 MG TABLET (FP) ONE (17:58)
[2024-02-09] MEDS: ACETAMINOPHEN 500 MG TABLET (FP) PO ONE (18:00)
== END 2024-02-09 19:36 | disposition home or self-care (01) ==
LOC: FER 17:06
DX: S80.211A Abrasion, right knee, initial encounter (principal); S80.212A Abrasion, left knee, initial encounter; M79.641 Pain in right hand; M25.571 Pain in right ankle and joints of right foot; W10.1XXA Fall (on)(from) sidewalk curb, initial encounter
CPT/HCPCS: 73110-TC-RT-FY; 73130-TC-RT-FY; 73502-TC-RT-FY; 73562-TC-LT-FY; 73562-TC-RT-FY; 73610-TC-RT-FY; 99284-25

== ENCOUNTER 2024-09-12 20:00 | Emergency (ER) | payer BC ==
[2024-09-12 20:17] VITALS: BP 140/63; PULSE 90; RESP 16; TEMP 97.9; BMI 26.1
[2024-09-12] MEDS ORDERED: ONDANSETRON *ODT* 4 MG TABLET ONE (20:23)
[2024-09-12] MEDS: ONDANSETRON *ODT* 4 MG TABLET SL ONE (20:24)
[2024-09-12] MEDS: ACETAMINOPHEN 500 MG TABLET (FP) PO ONE (21:25)
[2024-09-12] MEDS ORDERED: ACETAMINOPHEN 500 MG TABLET (FP) ONE (21:25)
== END 2024-09-12 21:26 | disposition home or self-care (01) ==
LOC: FER 20:00
DX: S06.0X0A Concussion without loss of consciousness, initial encounter (principal); R51.9 Headache, unspecified; R42 Dizziness and giddiness; R11.0 Nausea; M54.2 Cervicalgia; W22.8XXA Striking against or struck by other objects, initial encounter
CPT/HCPCS: 70450-TC; 72125-TC; 99284-25; Q0162